=== PATIENT | male | born 1945 | race Caucasian/White ===

== ENCOUNTER 2023-06-01 18:37 | Inpatient (IN) | payer MEDICARE, OTHER, SELFPAY ==
[2023-06-01] VITALS (8 sets, daily range): BP systolic 125–179; BP diastolic 70–95; PULSE 106–121; BMI 26.7
[2023-06-01 14:35] LABS: % Basophils 0.2 % (0-2); % Eosinophils 0.5 % (0-6); % Immature Granulocytes 0.7 % (0-0.5); % Lymphocytes 8.6 % (20.5-51.1); % Monocytes 9.8 % (1.7-9.3); % Neutrophils 80.2 % (42.2-75.2); Absolute Eosinophils 0.1 10^3/uL (0-0.7); Absolute Immature Granulocytes 0.1 10^3/uL (0-0.05); Absolute Lymphocytes 1.1 10^3/uL (1.2-3.4); Absolute Monocytes 1.2 10^3/uL (0.1-0.6); Absolute Neutrophils 9.9 10^3/uL (1.4-6.5); Hematocrit 38.3 % (39.0-52.0); Hemoglobin 13.7 g/dL (13.0-18.0); Mean Corp Hgb Conc. 35.8 g/dL (33.0-37.0); Mean Corpuscular Hgb 31.9 pg (27.0-31.0); Mean Corpuscular Volume 89.1 fL (80.0-94.0); Mean Platelet Volume 9.3 fL (7.4-10.4); Nucleated Red Blood Cells % 0 % (-); Platelet Count 249 10^3/uL (130-400); Red Cell Dist. Width 12.7 % (11.5-14.5); White Blood Cell Count 12.3 10^3/uL (4.8-10.8)
[2023-06-01 14:57] LABS: ALT (SGPT) 38 U/L (0-50); AST (SGOT) 48 U/L (17-59); Albumin 3.9 g/dl (3.5-5.0); Alkaline Phosphatase 116 U/L (38-126); Blood Urea Nitrogen 45 mg/dl (9-20); Calcium 9.5 mg/dl (8.4-10.2); Carbon Dioxide 21 mmol/L (22-30); Chloride 95 mmol/L (98-107); Glucose 335 mg/dl (70-99); Potassium 3.9 mmol/L (3.5-5.1); Sodium 128 mmol/L (135-145); Total Protein 7.1 g/dl (6.3-8.2); eGFR 52.09
--- NOTE | 2023-06-01 16:02 | ED.GENMED ---
History of Present Illness
General
Chief Complaint: Dizziness
Time Seen by Provider: 06/01/23 16:02
Travel History
Have you had any contact with someone who has COVID-19?: No
Do you have any symptoms of coronavirus? Fever > 100 degrees, chills, cough, shortness of breath, sore throat, loss of taste or smell, muscle aches, or headache?: No
History of Present Illness
History of Present Illness:
HPI: Patient apparently presents due to dizziness that started a few days ago. He states that he went to his primary care doctor yesterday where they found what sounds like an elevated white count ('they found an infection somewhere but could not
tell me where'). He had some chest pain a few days ago related to moving a heavy piece of machinery which has since resolved.
EXAM:
GENERAL: Well appearing in no distress
HEENT: Moist oral mucosa
CARDIOVASCULAR: No murmurs, normal heart rate, regular rhythm, No chest wall tenderness
PULMONARY: No respiratory distress, breath sounds are clear and equal
ABDOMEN: Soft with no peritoneal signs, no tenderness
NEUROLOGIC: Excellent strength all extremities, normal finger-nose testing, borderline positive Romberg
PSYCHIATRIC: Appropriate mental status, normal insight and judgement
EXTREMITIES: Nontender, no edema, moves all extremities equally
SKIN: No rash, no lesions
TIME OF INITIAL ENCOUNTER: 4:10 PM
NUMBER AND COMPLEXITY OF PROBLEMS ADDRESSED AT THE ENCOUNTER
� Chronic conditions affecting care: High blood pressure, hyperlipidemia, diabetes
� Acute Exacerbation and/or Progression of Chronic Illness: This is an acute problem
� Differential Diagnosis includes: Central nervous system pathology, positional vertigo less likely, dehydration, NANNETTE
AMOUNT AND/OR COMPLEXITY OF DATA TO BE REVIEWED AND ANALYZED
� I performed an independent evaluation of and my interpretation is:
EKG: Sinus 79, normal axis
CT: CT brain no acute abnormality
X-rays:
Laboratory Studies: White count 12.3, hemoglobin 13.7, sodium slightly low 128, bicarb 21, BUN 45, creatinine 1.4, glucose 335,
Other:
� Review of other/old records: I look for old labs�no old sodium to compare, creatinine in the past was 0.8
� Clinical information was obtained by an independent historian: I spoke to the son at bedside
� Prescriptions/Medications Considered but not given:
� Further testing considered but not performed:
RISK OF COMPLICATIONS AND/OR MORBIDITY OR MORTALITY OF PATIENT MANAGEMENT
� Social determinants of health affecting care: Lives at home
� Discussion with other providers: Hospitalist for admission at 50 p.m.
� Escalation of care including admission/observation vs risk of discharge considered: Hyponatremia likely insignificant given the hyperglycemia (corrected sodium 132). The patient has at least a borderline positive Romberg test.
He did rather poorly trying to walk�this is acute. Recommend he stay in the hospital.
Past History
Past History
ED Past Medical History: HTN, Hypercholesterolemia and NIDDM
ED Past Surgical History: Orthopedic
Social History
Tobacco: Non-smoker
Alcohol: None
Living: with family
Employment: Employed
Family History
Family History: Other (Noncontributory)
Phy Exam
Physical Exam
Physical Exam:
See HPI
Course
Orders/Labs/Results
Orders:
Orders
06/01/23 14:13
Electrocardiogram (*1) Urgent
Reason for Study: Vertigo / Dizzy
EKG- Treatment ONCE
06/01/23 14:22
Complete Blood Count/With Diff Urgent
Comprehensive Metabolic Panel Urgent
06/01/23 16:05
0.9% Sodium Chloride 1000 ml [Nss] 1,000 ml IV BOLUS
06/01/23 16:15
CT Head W/o Iv Contrast Urgent
Comment:
Reason For Exam: severe dizzy borderline positive romberg
06/01/23 16:48
Lactic Acid Q4H
Comment: CANCEL 2nd LACTIC ACID IF 1st LACTIC ACID IS LESS THAN 2
Blood Culture Q30M
CARLOS Source: Blood/Venous
Specimen Description:
Blood Culture Q30M
CARLOS Source: Blood/Venous
Specimen Description:
06/01/23 17:48
Urinalysis Reflex To Culture Urgent
Abnormal Lab Results
06/01/23
14:22
WBC 12.3 H 10^3/uL
(4.8-10.8)
RBC 4.30 L 10^6/uL
(4.70-6.10)
Hct 38.3 L %
(39.0-52.0)
MCH 31.9 H pg
(27.0-31.0)
Abs Immat Gran (auto) 0.1 H 10^3/uL
(0-0.05)
Absolute Neuts (auto) 9.9 H 10^3/uL
(1.4-6.5)
Absolute Lymphs (auto) 1.1 L 10^3/uL
(1.2-3.4)
Absolute Monos (auto) 1.2 H 10^3/uL
(0.1-0.6)
Immature Gran % 0.7 H %
(0-0.5)
Neutrophils % 80.2 H %
(42.2-75.2)
Lymphocytes % 8.6 L %
(20.5-51.1)
Monocytes % 9.8 H %
(1.7-9.3)
Sodium 128 L mmol/L
(135-145)
Chloride 95 L mmol/L
(98-107)
Carbon Dioxide 21 L mmol/L
(22-30)
BUN 45 H mg/dl
(9-20)
Creatinine 1.4 H mg/dL
(0.7-1.3)
Glucose 335 H mg/dl
(70-99)
06/01/23 14:22
06/01/23 14:22
Vital Signs
Initial and Last Documented VS:
Initial Vital Signs
Temp Pulse Resp BP Pulse Ox
98.0 F 90 16 134/76 98
06/01/23 14:08 06/01/23 14:08 06/01/23 14:08 06/01/23 14:08 06/01/23 14:08
Last Documented Vital Signs
Temp Pulse Resp BP Pulse Ox
98.0 F 90 16 134/76 98
06/01/23 14:08 06/01/23 14:08 06/01/23 14:08 06/01/23 14:08 06/01/23 14:08
*Critical Care Note
Total Time (30-74mins, 75-104mins- exclusive of procedures): Not Applicable
ED Attending Note
-
Portions of this chart may have been created with voice recognition software.� Occasional wrong word or��sound alike� substitutions may have occurred due to the inherent limitations of voice recognition software.
Discharge Plan
Departure
Patient Disposition: Admit
Date of Disposition: 06/01/23
Time of Disposition: 17:49
Presentation/result/management discussed w/ accepting MD/DO: Hospitalist
Discharge Problem:
Gait instability
Prescriptions:
No Action
metformin 500 MG tablet
1,000 mg PO BID
niacin (inositol niacinate) [Niacin No Flush] 400 MG capsule
1 cap PO DAILY
aspirin 81 MG tablet,chewable
81 mg PO DAILY
salmon oil-omega-3 fatty acids 1 CAP capsule
1 cap PO DAILY
Chromium
400 mcg PO DAILY
GlipiZIDE
10 mg PO DAILY
Saw [place]
160 mg BID
hydrocodone-acetaminophen [Vicodin ES] 1 EACH tablet
1 ea PO Q6HPRN PRN (Reason: pain) Qty: 10 0RF
multivitamin [Daily Vitamin] 1 EACH tablet
1 ea PO DAILY
ascorbic acid (vitamin C) [Vitamin C] 500 MG tablet
1,500 mg PO DAILY
diazepam 5 MG tablet
5 mg PO PRN
ezetimibe 10 MG tablet
10 mg PO DAILY
lycopene 10 MG capsule
10 mg PO DAILY
fluticasone furoate [Veramyst] 10 GM spray,suspension
2 spray intranasal DAILY
cholecalciferol (vitamin D3) [Vitamin D3] 4,000 UNIT capsule
4,000 unit PO DAILY
canagliflozin [Invokana] 100 MG tablet
100 mg PO DAILY
Pantoprazole
20 mg DAILY
Losartan
100 mg PO DAILY
ibuprofen 600 MG tablet
600 mg PO Q6H Qty: 20 0RF
hydrocodone-acetaminophen [Vicodin] 1 EACH tablet
1 ea PO Q4 PRN (Reason: pain) Qty: 14 0RF
Referrals:
Talha Long DO [Family Provider] -
Interventions
Interventions:
*Risk Screen - Suicide Last Done: 06/01/23 16:56
*General Assessment Last Done: 06/01/23 16:56
*Neglect/Abuse Screening Last Done: 06/01/23 16:56
*ED COVID-19 Vaccine History Last Done: 06/01/23 14:08
ED- Neurological Assessment Last Done: 06/01/23 16:30
[2023-06-01] MEDS: NSS 1000 IV ×2 (16:34→21:02)
[2023-06-01 17:09] LABS: Lactic Acid 1.3 mmol/L (0.7-2.0)
--- NOTE | 2023-06-01 18:21 | HPS.HSE ---
Family Physician
-
Family Physician: Talha Long, DO
Chief Complaint
-
Unsteadiness of gait
History of Present Illness
77-year-old male here with complaints of unsteadiness when he walks. Symptoms started initially with chest pain on Tuesday after lifting heavy machinery, subsequently developed gait ataxia Tuesday and has persisted since.
Also complaining of loss of appetite and malaise. Denies any fevers but did have some chills recently. Denies nausea vomiting or cough. No changes in bowel habits.
Normally quite active but over the past 4 days has had difficulty ambulating due to unsteadiness.
Went to see his primary care doctor and diagnosed with possible infection of unknown etiology. Details unclear. Referred to the emergency room.
Medical History
Past Medical History
Past Medical History: Reports Other
Additional Past Medical History:
DM2
Essential hypertension
Hyperlipidemia
Chronic right foot drop
Past Surgical History: Reports Other
Additional Past Surgical History:
Umbilical hernia repair
Bilateral shoulder surgery
Social History
Tobacco: Non-smoker
Alcohol: Occasional
Drug: None
Personal:
Living: With Family
Family History
Family History: Not pertinent
Allergies / Home Medications
Allergies reflects when Allergies were last updated in [employer].
Home Medications with original date entered in [employer]
Allergy/Medication List:
Allergies
Allergy/AdvReac Type Severity Reaction Status Date / Time
codeine Allergy Unknown Facial Verified 06/01/23 14:11
Swelling
lisinopril Allergy Unknown Swelling Verified 06/01/23 14:11
Lzwjemn-UJC-JoK Reductase Allergy Unknown Unknown Verified 06/01/23 14:11
Inhibitor
[Zcdfjru-Qpu-Qbt Reductase
Inhibitor]
Home Medications
metformin 500 mg tablet 1,000 mg PO BID 10/03/09
Chromium 400 mcg PO DAILY 02/24/13
GlipiZIDE 10 mg PO DAILY 02/24/13
Saw [place] 160 mg BID 02/24/13
aspirin 81 mg chewable tablet 81 mg PO DAILY 02/24/13
hydrocodone 7.5 mg-acetaminophen 300 mg tablet (Vicodin ES) 1 ea PO Q6HPRN PRN pain #10 tabs 02/24/13
niacin 400 mg (inositol niacinate 500 mg) capsule (Niacin No Flush) 1 cap PO DAILY 02/24/13
salmon oil-omega-3 fatty acids 1,000 mg-200 mg capsule 1 cap PO DAILY 02/24/13
Pantoprazole 20 mg DAILY 12/10/13
ascorbic acid (vitamin C) 500 mg tablet (Vitamin C) 1,500 mg PO DAILY 12/10/13
canagliflozin 100 mg tablet (Invokana) 100 mg PO DAILY 12/10/13
cholecalciferol (vitamin D3) 100 mcg (4,000 unit) capsule (Vitamin D3) 4,000 unit PO DAILY 12/10/13
diazepam 5 mg tablet 5 mg PO PRN 12/10/13
ezetimibe 10 mg tablet 10 mg PO DAILY 12/10/13
fluticasone furoate 27.5 mcg/actuation nasal spray,suspension (Veramyst) 2 spray intranasal DAILY 12/10/13
lycopene 10 mg capsule 10 mg PO DAILY 12/10/13
multivitamin (Daily Vitamin tablet) 1 ea PO DAILY 12/10/13
Losartan 100 mg PO DAILY 12/19/13
hydrocodone 5 mg-acetaminophen 300 mg tablet (Vicodin) 1 ea PO Q4 PRN pain #14 tabs 12/19/13
ibuprofen 600 mg tablet 600 mg PO Q6H #20 tabs 12/19/13
dulaglutide 1.5 mg/0.5 mL subcutaneous pen injector (Trulicity) 1.5 mg SC SA 06/01/23
rosuvastatin 10 mg tablet (Crestor) 10 mg PO QPM 06/01/23
Review of Systems
-
History Source: Patient
A 12 point ROS was completed and negative except as noted: Yes
Musculoskeletal: Reports Other (Left-sided neck muscular pain)
Neurological: Reports Other (Gait ataxia); Denies Headache
Physical Exam
Vital Signs
Vital Signs
Temp Pulse Resp BP Pulse Ox
98.0 F 86 22 125/70 95
06/01/23 14:08 06/01/23 18:00 06/01/23 18:00 06/01/23 17:00 06/01/23 18:00
Physical Exam
General: Well Developed, Well Nourished, No Apparent Distress and Comfortable
HEENT: NormoCephalic, Anicteric and Moist mucous membranes
Respiratory: Clear
Cardiac: S1/S2 and Regular Rhythm
GI: Soft, Non Tender and Non Distended
Genito-urinary: Deferred by me
Musculoskeletal: No Clubbing, No Cyanosis, Edema, Left Lower Extremity (Trace) and Edema, Right Lower Extremity (Trace)
Skin: Warm and Dry
Neuro: AO x 3, Nonfocal/grossly intact and Other (Chronic right foot drop, no nystagmus, no dysmetria)
Hematologic/Lymphatic: No Lymphadenopathy
Psych: Calm
Laboratory Results
-
06/01/23 14:22
06/01/23 14:22
Laboratory Results
Lactic Acid Cancelled 06/01/23 20:30
Total Bilirubin 1.0 mg/dl (0.2-1.3) 06/01/23 14:22
AST 48 U/L (17-59) 06/01/23 14:22
ALT 38 U/L (0-50) 06/01/23 14:22
Alkaline Phosphatase 116 U/L (38-126) 06/01/23 14:22
Impression/Plan
-
Gait ataxia -concern for cerebellar stroke given his age and comorbidities and persistent symptoms. CT head without acute disease. Moderate diffuse cerebral and cerebellar volume loss. Minimal periventricular white matter leukoaraiosis. Admit to
telemetry, consult PT/OT, check brain MRI. Continue low-dose aspirin. Patient denies history of stroke or TIA. Ataxia started more than 72 hours ago.
NANNETTE -likely due to volume depletion. Continue normal saline IV fluids. Repeat labs in the morning. Hold ARB.
Hyponatremia - likely hypovolemic. Normal saline as above.
Mild leukocytosis -looks nontoxic. Afebrile. Monitor for now.
DM2 with hyperglycemia -glucose 335. Check hemoglobin A1c. Use low resistance sliding scale. Hold oral agents.
Essential hypertension -stable.
Chronic right foot drop
Obesity due to excess calories
Full code
Spouse updated at the bedside.
[2023-06-01 18:25] LABS: Urine Albumin Trace (Neg - Trace); Urine Bilirubin Negative (Negative); Urine Character Clear (Clear); Urine Color Yellow; Urine Glucose 1+ (Negative); Urine Ketone Negative (Negative); Urine Leukocyte Negative (Negative); Urine Nitrite Negative (Negative); Urine Occult Blood Trace (Negative); Urine Urobilinogen Negative (Neg - 1+)
[2023-06-01 18:32] LABS: Urine Granular Cast 0-2 /LPF (0); Urine Hyaline Cast 0-2 /LPF (0-2); Urine Red Blood Cell 0-2 /HPF (0-2); Urine Squamous Cell 0-2 /LPF (Few); Urine White Cell 0-2 /HPF (0-5)
--- NOTE | 2023-06-01 20:45 | PTCARENOTE ---
Pt arrived to room 417-02. Pt ambulated from stretcher to bed with x1 assistance, short shuffled gait. Pt AAOx3, VSS. Pt in no signs of acute distress, respirations regular. Oriented to room, call ceballos placed within reach.
[2023-06-01] MEDS: ASPIR LOW (ENTERIC COATED) 81 MG PO (21:02)
[2023-06-01 21:49] LABS: Glucose - Point of Care 311 mg/dl (70-99)
[2023-06-01] MEDS: PROTONIX 40 MG PO (22:12)
[2023-06-02] VITALS (8 sets, daily range): BP systolic 99–158; BP diastolic 55–79; PULSE 82; O2SAT 95
[2023-06-02 07:33] LABS: Glucose - Point of Care 275 mg/dl (70-99)
[2023-06-02] MEDS: ASPIR LOW (ENTERIC COATED) 81 MG PO (07:35)
[2023-06-02] MEDS: NOVOLOG FLEXPEN-LOW RESISTANCE 3 UNITS SC (08:28)
--- NOTE | 2023-06-02 08:39 | W.PN.HOSP.TC ---
Today's Communication/Plan
-
IV cefepime
ID consult
PT/OT
Brain MRI
Await labs
Assessment / Plan
Assessment / Plan
Gen-AAOx3, NAD
HEENT-NC, AT, anicteric, clear oral mm
Neck-supple
CV-reg, no M, +S1/S2
Lungs-clear B/L
Abd-soft, NT, ND
Ext-no edema
Musculoskeletal-no cyanosis, clubbing
Skin-warm and dry
Neuro-grossly non-focal
Psych-calm, cooperative
Gait ataxia -concern for cerebellar stroke given his age and comorbidities and persistent symptoms.� However, neurologic exam is unimpressive. No nystagmus. CT head without acute disease.� Await brain MRI. Consult PT/OT.
Gram-negative sepsis (POA) -cefepime started. Consult ID. Source of sepsis unclear. Urinalysis unremarkable. Blood cultures show gram-negative bacilli. No fevers in the hospital. Patient states that he had chills several days ago prior to
admission. Denies fevers or sweats. Denies unusual back pain or urinary symptoms. Denies GI symptoms.
NANNETTE -differential diagnosis includes volume depletion versus sepsis.� Continue normal saline IV fluids.�Hold ARB. Stop NSAIDs. Labs pending for today.
Hyponatremia - likely hypovolemic.� Normal saline as above.
Mild leukocytosis -looks nontoxic.� Afebrile.� Monitor for now.
DM2 with hyperglycemia -glucose 275 this a.m.� Check hemoglobin A1c.� Use low resistance sliding scale.� Hold oral agents. He uses Trulicity, glipizide, metformin at home.
Essential hypertension -stable.
Hyperlipidemia -continue rosuvastatin.
Chronic right foot drop
Obesity due to excess calories
Full code
Anticipated Discharge: > 48 hours
Subjective/Interval History
-
Date of Service: June 02, 2023
Patient seen and examined. No new complaints. About to eat breakfast.
Objective Data
-
Labs:
Laboratory Results
06/02/23
08:13
WBC Pending
Hgb Pending
Hct Pending
Plt Count Pending
Sodium Pending
Potassium Pending
Chloride Pending
Carbon Dioxide Pending
BUN Pending
Creatinine Pending
Glucose Pending
Calcium Pending
Total Bilirubin Pending
AST Pending
ALT Pending
Alkaline Phosphatase Pending
Vital Signs:
Vital Signs
Temp Pulse Resp BP Pulse Ox
99.3 F 84 18 121/66 94
06/02/23 03:44 06/02/23 03:44 06/02/23 03:44 06/02/23 03:44 06/02/23 03:44
I&O
06/01/23 06/02/23 06/03/23
06:59 06:59 06:59
Intake Total 960 / 960 860 / 860
Output Total 1200 / 1200
Balance -240 / -240 860 / 860
Review of Systems
-
History Source: Patient
All other systems: Reviewed and negative
[2023-06-02] MEDS: MAXIPIME 2000 MG IV ×2 (08:44→20:03)
[2023-06-02] MEDS: STERILE WATER FOR INJECTION 10 ML IV ×2 (08:45→20:03)
[2023-06-02 08:57] LABS: % Basophils 0.3 % (0-2); % Eosinophils 0.2 % (0-6); % Immature Granulocytes 1.3 % (0-0.5); % Lymphocytes 7.6 % (20.5-51.1); % Monocytes 8.6 % (1.7-9.3); Absolute Immature Granulocytes 0.1 10^3/uL (0-0.05); Absolute Lymphocytes 0.8 10^3/uL (1.2-3.4); Absolute Monocytes 0.9 10^3/uL (0.1-0.6); Absolute Neutrophils 8.9 10^3/uL (1.4-6.5); Hemoglobin 12.9 g/dL (13.0-18.0); Mean Corp Hgb Conc. 34.9 g/dL (33.0-37.0); Mean Corpuscular Hgb 31.3 pg (27.0-31.0); Mean Corpuscular Volume 89.8 fL (80.0-94.0); Mean Platelet Volume 9.3 fL (7.4-10.4); Nucleated Red Blood Cells % 0 % (-); Platelet Count 262 10^3/uL (130-400); Red Blood Cell Count 4.12 10^6/uL (4.70-6.10); Red Cell Dist. Width 12.4 % (11.5-14.5); White Blood Cell Count 10.9 10^3/uL (4.8-10.8)
[2023-06-02 09:47] LABS: ALT (SGPT) 113 U/L (0-50); AST (SGOT) 280 U/L (17-59); Albumin 3.5 g/dl (3.5-5.0); Alkaline Phosphatase 209 U/L (38-126); Blood Urea Nitrogen 25 mg/dl (9-20); Calcium 9.2 mg/dl (8.4-10.2); Carbon Dioxide 22 mmol/L (22-30); Chloride 100 mmol/L (98-107); Estimated Creatinine Clearance 65 ml/min; Glucose 274 mg/dl (70-99); Potassium 3.9 mmol/L (3.5-5.1); Sodium 131 mmol/L (135-145); Total Bilirubin 2.5 mg/dl (0.2-1.3); Total Protein 6.7 g/dl (6.3-8.2); eGFR > 60.00
--- NOTE | 2023-06-02 10:17 | CM ---
Patient seen at bedside. Patient states that he lives with his in a 2 story home. Patient has a walker at home that he does not use. Patient PCP is Dr. White and he uses the [facility]. Patient states that he does not anticipate any
needs at discharge but is eager to understand what is causing his issues. CM will continue to follow for discharge planning needs.
Plan; home with no need vs VN
[2023-06-02] MEDS: NSS 1000 IV (10:44)
[2023-06-02 11:30] LABS: Glycohemoglobin (HgbA1c) 8.9 % (4.0-5.6)
[2023-06-02 12:13] LABS: Glucose - Point of Care 319 mg/dl (70-99)
[2023-06-02] MEDS: NOVOLOG FLEXPEN-LOW RESISTANCE 4 UNITS SC ×2 (12:14→17:09)
[2023-06-02 16:57] LABS: Glucose - Point of Care 325 mg/dl (70-99)
[2023-06-02] MEDS: PROTONIX 40 MG PO (17:10)
[2023-06-02] MEDS: LOVENOX 40 MG SC (17:10)
--- NOTE | 2023-06-02 17:35 | CON.ID ---
Consultation
-
Date/Time Consultation Requested: 06/02/2023 08:30
Date/Time Consultation Performed: 06/02/2023 1715
Requesting Provider: Dr. Frey
Performing Provider: Dr. Elizabeth
Reason for Consultation: Bacteremia
Chief Complaint / Past History
History of Present Illness
Sang Maldonado is a 77-year-old man being evaluated at the request of Dr. Frey in regards to bacteremia. History is obtained from chart review, along with patient interview and additional history obtained from the patient's who was at
the bedside.
The patient has a significant past medical history of diabetes mellitus and was in his usual state of health until approximately 4 to 5 days ago when he began to have some dizziness. He denies any loss of consciousness or falls, but his
notes that he saw him in the kitchen staggering around and thought he might be drunk. During this period of time he denies any fevers, but does report some intermittent chills. He denies any nausea or vomiting history, but notes a decreased
appetite for several days. He denies any abdominal pain. He denies any dysuria or change in his urinary stream.
Ultimately, the patient was seen by his PCP, and it sounds like he was found to have an elevated white count and he was sent to the emergency room for further evaluation. Once here, blood cultures were obtained, which are now positive for E. coli.
Infectious Diseases is asked to comment upon further antimicrobial therapy. The patient has been started on empiric cefepime.
Past History
Additional Past Medical History:
HTN
Dyslipidemia
Diabetes mellitus
Additional Past Surgical History:
Shoulder surgery
Allergy History:
codeine Allergy (Verified 06/01/23 21:14)
Facial Swelling
lisinopril Allergy (Verified 06/01/23 21:14)
Swelling
Wteioql-INW-OwV Reductase Inhibitor [Mngwgwg-Fml-Txt Reductase Inhibitor] Allergy (Verified 06/01/23 21:14)
Unknown
Medications Reviewed: Yes
Current Antibiotics:
Cefepime 2 g IV every 12 hours
Social History
Tobacco: Non-Smoker
Alcohol: None
Drug: None
Personal:
Living: With Family
Employment: Retired
Family History
Family History: Not Pertinent
Review of Systems
Vital Signs
Temp Pulse Resp BP Pulse Ox
100.2 F 85 18 158/78 96
06/02/23 15:45 06/02/23 15:45 06/02/23 15:45 06/02/23 15:45 06/02/23 15:45
Physical Exam
Physical Exam
Constitutional: No Acute Distress, Comfortable and Non-toxic
Head: Normocephalic
Eyes: Pupils Equal, Pupils Round, No Conjunctival Hemorrhage and Sclera Anicteric
Oral: No Thrush and No Ulcers
Cardiovascular: S1/S2; Negative S3/S4
Pulmonary: Clear and Non Labored; Negative Wheezes, Rales or Rhonchi
Gastrointestinal: Soft, Non Tender, Non Distended, Normal Bowel Sounds, No Rebound and No Guarding
Genito-Urinary: Negative [place]
Extremities: Negative Edema, Cyanosis or Erythema
Neurological: Awake and Alert
Psychological: Calm
Lab / Diagnostic Study Results
06/02/23 08:13
06/02/23 08:13
Abs Immat Gran (auto) 0.1 10^3/uL (0-0.05) H 06/02/23 08:13
Absolute Neuts (auto) 8.9 10^3/uL (1.4-6.5) H 06/02/23 08:13
Absolute Lymphs (auto) 0.8 10^3/uL (1.2-3.4) L 06/02/23 08:13
Absolute Monos (auto) 0.9 10^3/uL (0.1-0.6) H 06/02/23 08:13
Absolute Basos (auto) 0.0 10^3/uL (0-0.2) 06/02/23 08:13
Immature Gran % 1.3 % (0-0.5) H 06/02/23 08:13
Neutrophils % 82.0 % (42.2-75.2) H 06/02/23 08:13
Lymphocytes % 7.6 % (20.5-51.1) L 06/02/23 08:13
Monocytes % 8.6 % (1.7-9.3) 06/02/23 08:13
Eosinophils % 0.2 % (0-6) 06/02/23 08:13
Basophils % 0.3 % (0-2) 06/02/23 08:13
Lactic Acid Cancelled 06/01/23 20:30
Ur Squamous Epith Cells 0-2 /LPF (Few) 06/01/23 18:06
Microbiology Results
Micro:
06/01/23 16:48 Blood Culture - Preliminary
Blood/Venous Escherichia coli
Gram Stain - Preliminary
06/01/23 16:48 Blood Culture - Preliminary
Blood/Venous Positive culture in progress
Gram Stain - Preliminary
Imaging:
06/01/2023 CT head without contrast: No CT evidence for acute intracranial hemorrhage or extra-axial collection. Moderate diffuse cerebral and cerebellar volume loss is noted.
Assessment / Plan
E. coli bacteremia; source unclear
Leukocytosis
Transaminitis
Elevated bilirubin
HTN
Dyslipidemia
Diabetes mellitus (uncontrolled; PdR0b=9.9)
Recommendations:
Continue with cefepime for the present.
Repeat blood cultures to assess clearance.
Await sensitivity data to guide further antimicrobial selection and de-escalation.
Suspected intra-abdominal source of E. coli. Will order abdominal ultrasound, but ultimately may need CT with contrast.
Trend LFTs and bilirubin.
Follow white count and temperature curve.
[2023-06-02] MEDS: TYLENOL 650 MG PO (20:03)
[2023-06-02 21:31] LABS: Glucose - Point of Care 289 mg/dl (70-99)
[2023-06-03 03:00] VITALS: BP 110/62
[2023-06-03 07:30] VITALS: BP 149/82
[2023-06-03 07:36] LABS: Glucose - Point of Care 239 mg/dl (70-99)
[2023-06-03] MEDS: ASPIR LOW (ENTERIC COATED) 81 MG PO (07:48)
[2023-06-03] MEDS: NOVOLOG FLEXPEN-LOW RESISTANCE 2 UNITS SC (07:48)
[2023-06-03] MEDS: STERILE WATER FOR INJECTION 10 ML IV ×2 (07:49→20:44)
[2023-06-03] MEDS: MAXIPIME 2000 MG IV ×2 (07:49→20:43)
[2023-06-03 09:40] LABS: % Basophils 0.4 % (0-2); % Immature Granulocytes 1.4 % (0-0.5); % Lymphocytes 10.5 % (20.5-51.1); % Neutrophils 76.7 % (42.2-75.2); Absolute Eosinophils 0.1 10^3/uL (0-0.7); Absolute Immature Granulocytes 0.1 10^3/uL (0-0.05); Absolute Lymphocytes 0.9 10^3/uL (1.2-3.4); Absolute Monocytes 0.8 10^3/uL (0.1-0.6); Absolute Neutrophils 6.4 10^3/uL (1.4-6.5); Hematocrit 36.9 % (39.0-52.0); Hemoglobin 13.3 g/dL (13.0-18.0); Mean Corpuscular Hgb 32.8 pg (27.0-31.0); Mean Corpuscular Volume 90.9 fL (80.0-94.0); Mean Platelet Volume 9.7 fL (7.4-10.4); Nucleated Red Blood Cells % 0 % (-); Platelet Count 293 10^3/uL (130-400); Red Blood Cell Count 4.06 10^6/uL (4.70-6.10); Red Cell Dist. Width 12.6 % (11.5-14.5); White Blood Cell Count 8.3 10^3/uL (4.8-10.8)
[2023-06-03 10:17] LABS: ALT (SGPT) 298 U/L (0-50); AST (SGOT) 317 U/L (17-59); Albumin 3.4 g/dl (3.5-5.0); Alkaline Phosphatase 298 U/L (38-126); Blood Urea Nitrogen 19 mg/dl (9-20); Calcium 9.6 mg/dl (8.4-10.2); Carbon Dioxide 24 mmol/L (22-30); Chloride 99 mmol/L (98-107); Estimated Creatinine Clearance 81 ml/min; Glucose 281 mg/dl (70-99); Sodium 136 mmol/L (135-145); Total Bilirubin 3.3 mg/dl (0.2-1.3); Total Protein 6.6 g/dl (6.3-8.2); eGFR > 60.00
[2023-06-03 11:09] VITALS: BP 133/73
--- NOTE | 2023-06-03 11:50 | CON.GS ---
Addendum entered and electronically signed by Matt Levi MD 06/03/23 12:23:
Patient seen and examined. Agree with assessment plan as documented below.
Patient is a 77 yo M with a PMH of GERD, HTN, HLD, NIDDM, and s/p open umbilical hernia repair with mesh who presented to the hospital with dizziness and gait instability for approximately 1 week. He was initially admitted under the presumption of
a neurologic issue, and underwent a CT and MRI of the brain which were negative. He was found to have positive blood cultures for E. coli. He was febrile to 101.3 yesterday. Labs were notable for a elevation in bilirubin and LFTs prompting an
ultrasound which demonstrated cholelithiasis and signs of cholecystitis. He is currently on Cefepime. He denies any abdominal pain or discomfort. No nausea or vomiting. He does report some chills while at home at night, but denies any fevers.
Denies any jaundice or pale stools. He does note darker urine. Of note, patient recently ate breakfast at approximately 10 to 11 AM.
Gen: NAD
Abd: soft, NT/ND, non-peritoneal, prior umbilical incision well healed
Labs and imaging were reviewed.
Patient is a 77 yo M p/w acute cholecystitis versus choledocholithiasis.
Natural history and pathophysiology of biliary and stone disease was discussed. Anatomy was reviewed utilizing pictorial images. Role of cholecystectomy was discussed. Given his recent PO intake (and clinical stability), unable to perform
cholecystectomy today. Plan for further workup of choledocholithiasis given his elevated LFTs, bilirubin, and soft signs of cholangitis. Continue with antibiotic coverage. NPO. All questions answered.
-- MRCP
-- NPO, IVF
-- Abx: Cefepime, ID on board
-- Trend labs
Original Note:
Consultation
-
Date/Time Consultation Requested: 06/03/23921
Requesting Provider: Tk
Medical History
-
Chief Complaint: dizziness
History of Present Illness:
77 yo male with a h/o DM, HTN and UHR remotely who presented with dizziness and difficulty walking about one week ago. Initial neurologic work up has been negative. Blood cultures on admission with growth of ecoli with initial elevation in WBC's.
LFT's initially normal but have been steadily rising since presentation. He denies nausea, vomiting or abdominal pain. He notes that his urine has been dark but denies acholic stools. He denies constipation or diarrhea. He has been tolerating diet
without difficulty. He was febrile yesterday to 101.3, but has been afebrile since that time. Vitals have been stable. On exam, his abd is soft, non-tender and non-distended. He has mild jaundice.
Past Medical History
Past Medical History: HTN, Hypercholesterolemia and NIDDM
Past Surgical History: Hernia Repair (UHR with mesh remotely) and Orthopedic (shoulder surgery)
Social History
Tobacco: Non-Smoker
Alcohol: Occasional
Family History
Family History: Reviewed & Not Pertinent
Allergies / Home Medications
Allergy/AdvReac Type Severity Reaction Status Date / Time
codeine Allergy Facial Verified 06/01/23 21:14
Swelling
lisinopril Allergy Swelling Verified 06/01/23 21:14
Crwhyhg-LCS-WtQ Reductase Allergy Unknown Verified 06/01/23 21:14
Inhibitor
[Sutqxhr-Hsi-Haj Reductase
Inhibitor]
Medication Instructions Recorded Confirmed Type
metformin 500 mg tablet 1,000 mg PO BID 10/03/09 06/01/23 History
aspirin 81 mg chewable tablet 81 mg PO DAILY 02/24/13 06/01/23 History
glipizide 10 mg tablet, extended 10 mg PO DAILY 02/24/13 06/01/23 History
release 24 hr
ascorbic acid (vitamin C) 500 mg 1,500 mg PO DAILY 12/10/13 06/01/23 History
tablet (Vitamin C)
docusate sodium 100 mg capsule 100 mg PO DAILYPRN PRN cosntipation 06/01/23 06/01/23 History
(Colace)
dulaglutide 1.5 mg/0.5 mL 1.5 mg SC SA 06/01/23 06/01/23 History
subcutaneous pen injector
(Trulicity)
hydrocodone 5 mg-acetaminophen 300 1 tab PO BIDPRN PRN moderate pain 06/01/23 06/01/23 History
mg tablet
losartan 100 mg tablet 100 mg PO QPM 06/01/23 06/01/23 History
metoprolol succinate 25 mg 25 mg PO QPM 06/01/23 06/01/23 History
tablet,extended release 24 hr
(Toprol XL)
naproxen sodium 220 mg tablet 440 mg PO BIDPRN PRN mild pain 06/01/23 06/01/23 History
(Aleve)
omeprazole 20 mg tablet,delayed 20 mg PO QPM 06/01/23 06/01/23 History
release
rosuvastatin 10 mg tablet (Crestor) 10 mg PO QPM 06/01/23 06/01/23 History
therapeutic multivitamin 1 tab PO DAILY 06/01/23 06/01/23 History
Review of Systems
-
History Source: Patient
All other systems: Negative unless noted
A 10 point review of systems was completed, and was negative except as per HPI.
Physical Exam
Vital Signs
Temp Pulse Resp BP Pulse Ox
98.5 F 90 18 133/73 94
06/03/23 11:09 06/03/23 11:09 06/03/23 11:09 06/03/23 11:09 06/03/23 11:09
06/02/23 06/03/23 06/04/23
06:59 06:59 06:59
Actual Weight 84.538 kg
Body Mass Index (BMI) 26.7
Lab Results
06/03/23 08:27
06/03/23 08:27
WBC 8.3 10^3/uL (4.8-10.8) 06/03/23 08:
Hgb 13.3 g/dL (13.0-18.0) 06/03/23 08:
Hct 36.9 % (39.0-52.0) L 06/03/23 08:27
Plt Count 293 10^3/uL (130-400) 06/03/23 08:
Abs Immat Gran (auto) 0.1 10^3/uL (0-0.05) H 06/03/23 08:
Neutrophils % 76.7 % (42.2-75.2) H 06/03/23 08:
Physical Exam
General: Well Developed and No Apparent Distress
HEENT: Moist Mucous Membranes
Respiratory: Non Labored Respirations
GI: Soft, Non Tender and Non Distended
Skin: Jaundice
Neuro: Awake, Alert and AO x 3
Psych: Calm
Data Reviewed
-
Ultrasound: Image Personally Visualized and interpreted, Report Reviewed by me, Discussed with Physician and Discussed with Patient
Labs: Labs Reviewed by me, Discussed with Physician and Discussed with Patient
Old Records: Reviewed
Assessment / Plan
-
77 yo male with a h/o DM, HTN and UHR remotely who presented with dizziness and difficulty walking about one week ago. Initial neurologic work up has been negative. Blood cultures on admission with growth of ecoli with initial elevation in WBC's
(now WBC's normal). LFT's initially normal but have been steadily rising since presentation. Fever yesterday up to 101.3. No c/o GI symptoms. US today with layering sludge and wall thickening concerning for acute cholecystitis. Patient ate full
breakfast just prior to exam.
--Plan MRCP to evaluate for choledocholithiasis, if noted will consult GI to follow with us
--Recommend lap luz marina this admission, timing TBD pending MRCP findings/OR availability. Will make NPO after MN for tentative OR
--Continue ABX as per ID
[2023-06-03 12:04] LABS: Glucose - Point of Care 377 mg/dl (70-99)
[2023-06-03] MEDS: NOVOLOG FLEXPEN-LOW RESISTANCE 5 UNITS SC (12:32)
[2023-06-03] MEDS: NOVOLIN N vial 0.100000000000000006 UNITS SC (12:33)
--- NOTE | 2023-06-03 13:04 | W.PN.HOSP.TC ---
Today's Communication/Plan
-
MRCP
Add insulin
Diabetes education
N.p.o. after midnight
Assessment / Plan
Assessment / Plan
Gen-AAOx3, NAD
HEENT-NC, AT, anicteric, clear oral mm
Neck-supple
CV-reg, no M, +S1/S2
Lungs-clear B/L
Abd-soft, NT, ND
Ext-no edema
Musculoskeletal-no cyanosis, clubbing
Skin-warm and dry
Neuro-grossly non-focal
Psych-calm, cooperative
E. coli sepsis due to acute calculus cholecystitis -suspect present on admission. Hemodynamically stable. White blood cell count normalized. Afebrile. Fever noted last night. Elevated LFTs noted.
Blood cultures positive. Continue antibiotics per ID. Appreciate surgery input, anticipate cholecystectomy tomorrow. N.p.o. after midnight. Await MRCP today.
Gait ataxia -likely due to sepsis, acute illness. No stroke noted on brain MRI. Ataxia improving overall. Continue PT.
NANNETTE -differential diagnosis includes volume depletion versus sepsis.� Continue normal saline IV fluids.�Hold ARB. Stop NSAIDs. NANNETTE resolved.
Hyponatremia - likely hypovolemic.� Sodium normalized.
DM2 with hyperglycemia -glucose 281 this a.m.,�hemoglobin A1c 8.9%.�He uses Trulicity, glipizide, metformin at home, all are on hold for now. Add Lantus 10 units at bedtime, give a dose of NPH now. Anticipate may need to go home on insulin.
Discussed with patient. Consult diabetes education.
Essential hypertension -stable.
Hyperlipidemia -continue rosuvastatin.
Chronic right foot drop
Obesity due to excess calories
Full code
Anticipated Discharge: > 48 hours
Subjective/Interval History
-
Date of Service: June 03, 2023
Patient seen and examined. No complaints. Overall feeling better.
Objective Data
-
Labs:
Laboratory Results
06/03/23
08:27
WBC 8.3
Hgb 13.3
Hct 36.9 L
Plt Count 293
Sodium 136
Potassium 4.0
Chloride 99
Carbon Dioxide 24
BUN 19
Creatinine 0.8
Glucose 281 H
Calcium 9.6
Total Bilirubin 3.3 H
AST 317 H
ALT 298 H
Alkaline Phosphatase 298 H
Vital Signs:
Vital Signs
Temp Pulse Resp BP Pulse Ox
98.5 F 90 18 133/73 94
06/03/23 11:09 06/03/23 11:09 06/03/23 11:09 06/03/23 11:09 06/03/23 11:09
I&O
06/02/23 06/03/23 06/04/23
06:59 06:59 06:59
Intake Total 960 / 960 1520 / 1520
Output Total 1200 / 1200 2600 / 2600
Balance -240 / -240 -1080 / -1080
Review of Systems
-
History Source: Patient
All other systems: Reviewed and negative
--- NOTE | 2023-06-03 14:33 | W.PN.ID1 ---
Date of Service
Date of Service: June 03, 2023
Today's Communication
Continue antibiotics.
Assessment / Plan
E. coli bacteremia
Suspected cholecystitis
Leukocytosis
Transaminitis
Elevated bilirubin
HTN
Dyslipidemia
Diabetes mellitus (uncontrolled; LrG2y=0.9)
Recommendations:
Continue with cefepime for the present.
Repeat blood cultures to assess clearance.
Await sensitivity data to guide further antimicrobial selection and de-escalation.
Follow white count and temperature curve.
Chief Complaint
-: Bacteremia
Subjective / Review of Systems
Review of Systems: No Fever and No Chills
Vital Signs / Physical Exam
Vital Signs
Vital Signs
Temp Pulse Resp BP Pulse Ox
98.5 F 90 18 133/73 94
06/03/23 11:09 06/03/23 11:09 06/03/23 11:09 06/03/23 11:09 06/03/23 11:09
Physical Exam
Constitutional: No Acute Distress, Comfortable and Non-toxic
Eyes: No Conjunctival Hemorrhage and Sclera Anicteric
Cardiovascular: S1/S2; Negative S3/S4
Pulmonary: Non Labored; Negative Wheezes
Gastrointestinal: Soft, Non Tender and Non Distended
Neurological: Awake and Alert
Psychological: Calm
Objective Data
Lab Data
Lab Results
06/03/23 08:27
06/03/23 08:27
Estimated Creat Clear 81 ml/min 06/03/23 08:27
Lactic Acid Cancelled 06/01/23 20:30
Total Bilirubin 3.3 mg/dl (0.2-1.3) H 06/03/23 08:27
AST 317 U/L (17-59) H 06/03/23 08:27
ALT 298 U/L (0-50) H 06/03/23 08:27
Alkaline Phosphatase 298 U/L (38-126) H 06/03/23 08:27
Most recent labs reviewed.
Micro Results:
06/01/23 16:48 Blood Culture - Preliminary
Blood/Venous Escherichia coli
Gram Stain - Preliminary
06/01/23 16:48 Blood Culture - Preliminary
Blood/Venous Escherichia coli
Gram Stain - Preliminary
06/02/23 18:24 Blood Culture - Pending
Blood/Venous
06/02/23 18:22 Blood Culture - Pending
Blood/Venous
Imaging:
06/03/2023 Ultrasound abdomen: Layering echogenic sludge and possible noncalcified layering gallstones are noted. Gallbladder wall thickening and Tunde cholecystic fluid consistent with acute cholecystitis although patient has a negative sonographic
Giraldo sign.
06/01/2023 CT head without contrast: No CT evidence for acute intracranial hemorrhage or extra-axial collection. Moderate diffuse cerebral and cerebellar volume loss is noted.
--- NOTE | 2023-06-03 14:58 | CM ---
Patient seen with spouse. Per nurse, patient will be NPO after midnight and have surgery tomorrow. CM will continue to follow for discharge planning needs.
Plan; home no needs vs VN
[2023-06-03 15:00] VITALS: BP 153/89
--- NOTE | 2023-06-03 16:20 | PN.DE ---
Diabetes Education
- -
06/03/2023: Diabetes Education
Met with Mr. Garcia at bedside. Pt sitting up in chair. States he has a working glucometer at home but does not monitor his sugars regularly.
Discussed action of both rapid acting and long acting insulins as well as symptoms and treatment of hypoglycemia. Aware for meals to check blood glucose, inject Lantus (Long acting insulin) in outer thigh, rotating sites. Aware to store insulin pens
that are not in use in the refrigerator. Instructions with good return demonstration using the insulin pen were noted. Discussed importance of checking blood sugars 4x/day to assess food/medication effect on his BS, reducing CHO intake, and being
active. Provided information and handout on outpt education classes.
Will need RX for Lantus as well as pen needles at discharge.
Extra BD Hortencia needles left at bedside for later use to reinforce insulin administration.
Updates given to nursing team taking care of pt
[2023-06-03 16:58] LABS: Glucose - Point of Care 337 mg/dl (70-99)
[2023-06-03] MEDS: NOVOLOG FLEXPEN-LOW RESISTANCE 4 UNITS SC (17:00)
[2023-06-03] MEDS: LOVENOX 40 MG SC (17:00)
[2023-06-03] MEDS: PROTONIX 40 MG PO (17:01)
[2023-06-03 19:00] VITALS: BP 133/72
[2023-06-03 21:29] LABS: Glucose - Point of Care 274 mg/dl (70-99)
[2023-06-03 21:35] LABS: Glucose - Point of Care 296 mg/dl (70-99)
[2023-06-03] MEDS: LANTUS 0.100000000000000006 UNITS SC (22:06)
[2023-06-03 23:00] VITALS: BP 144/75
[2023-06-04 03:00] VITALS: BP 133/70
[2023-06-04 07:00] VITALS: BP 138/81
[2023-06-04 08:13] LABS: ALT (SGPT) 444 U/L (0-50); AST (SGOT) 484 U/L (17-59); Albumin 3.6 g/dl (3.5-5.0); Alkaline Phosphatase 387 U/L (38-126); Blood Urea Nitrogen 22 mg/dl (9-20); Calcium 9.6 mg/dl (8.4-10.2); Carbon Dioxide 25 mmol/L (22-30); Chloride 99 mmol/L (98-107); Estimated Creatinine Clearance 81 ml/min; Glucose 254 mg/dl (70-99); Potassium 4.5 mmol/L (3.5-5.1); Sodium 134 mmol/L (135-145); Total Bilirubin 1.9 mg/dl (0.2-1.3); Total Protein 6.9 g/dl (6.3-8.2); eGFR > 60.00
[2023-06-04 08:52] LABS: Glucose - Point of Care 234 mg/dl (70-99)
[2023-06-04] MEDS: NOVOLOG FLEXPEN-LOW RESISTANCE SC (08:59)
[2023-06-04] MEDS: MAXIPIME 2000 MG IV (09:02)
[2023-06-04] MEDS: ASPIR LOW (ENTERIC COATED) 81 MG PO (09:02)
[2023-06-04] MEDS: STERILE WATER FOR INJECTION 10 ML IV (09:03)
[2023-06-04 10:57] VITALS: BP 127/74
--- NOTE | 2023-06-04 11:05 | W.PN.HOSP.TC ---
Today's Communication/Plan
-
Adjust insulin
Await surgery input
Assessment / Plan
Assessment / Plan
Gen-AAOx3, NAD
HEENT-NC, AT, anicteric, clear oral mm
Neck-supple
CV-reg, no M, +S1/S2
Lungs-clear B/L
Abd-soft, NT, ND
Ext-no edema
Musculoskeletal-no cyanosis, clubbing
Skin-warm and dry
Neuro-grossly non-focal
Psych-calm, cooperative
E. coli sepsis due to acute calculus cholecystitis -suspect present on admission. Hemodynamically stable. White blood cell count normalized. No further fevers. Elevated LFTs noted.
Repeat blood cultures negative. Continue antibiotics per ID. Appreciate surgery input, anticipate cholecystectomy tomorrow. Awaiting general surgery decision on timing of cholecystectomy. MRCP ordered but not completed yet.
Gait ataxia -likely due to sepsis, acute illness. No stroke noted on brain MRI. Ataxia improving overall. Continue PT.
NANNETTE -differential diagnosis includes volume depletion versus sepsis.� Continue normal saline IV fluids.�Hold ARB. Stop NSAIDs. NANNETTE resolved.
Hyponatremia - likely hypovolemic.� Sodium improving.
DM2 with hyperglycemia -glucose 254 this a.m.,�hemoglobin A1c 8.9%.�He uses Trulicity, glipizide, metformin at home, all are on hold for now. Not on insulin at home. Will increase Lantus to 12 units at bedtime. Continue low resistance sliding
scale.
Essential hypertension -stable.
Hyperlipidemia -hold rosuvastatin for elevated LFTs.
Chronic right foot drop
Obesity due to excess calories
Full code
Anticipated Discharge: > 48 hours
Subjective/Interval History
-
Date of Service: June 04, 2023
Patient seen and examined. No complaints. Frustrated that his surgery was canceled.
Objective Data
-
Labs:
Laboratory Results
06/04/23
07:06
Sodium 134 L
Potassium 4.5
Chloride 99
Carbon Dioxide 25
BUN 22 H
Creatinine 0.8
Glucose 254 H
Calcium 9.6
Total Bilirubin 1.9 H D
AST 484 H
ALT 444 H
Alkaline Phosphatase 387 H
Vital Signs:
Vital Signs
Temp Pulse Resp BP Pulse Ox
98.0 F 78 14 127/74 96
06/04/23 10:57 06/04/23 10:57 06/04/23 10:57 06/04/23 10:57 06/04/23 10:57
I&O
06/03/23 06/04/23 06/05/23
06:59 06:59 06:59
Intake Total 1520 / 1520 920 / 920
Output Total 2600 / 2600
Balance -1080 / -1080 920 / 920
Review of Systems
-
History Source: Patient
All other systems: Reviewed and negative
[2023-06-04 11:46] LABS: Glucose - Point of Care 281 mg/dl (70-99)
[2023-06-04] MEDS: NOVOLOG FLEXPEN-LOW RESISTANCE 3 UNITS SC ×2 (12:03→17:34)
--- NOTE | 2023-06-04 12:44 | W.PN.ID1 ---
Date of Service
Date of Service: June 04, 2023
Today's Communication
start cefazolin
agree with cholecystectomy
Assessment / Plan
E. coli bacteremia
Suspected cholecystitis
Leukocytosis
Transaminitis
Elevated bilirubin
HTN
Dyslipidemia
Diabetes mellitus (uncontrolled; HeC7c=1.9)
Recommendations:
start cefazolin stop cefepime
Repeat blood cultures in progress
Agree with cholecystectomy
Follow white count and temperature curve.
Chief Complaint
-: Bacteremia
Subjective / Review of Systems
afebrile
bp stable
leukocytosis has resolved, L shift nearly resolved
cr 0.8
progression in alk phos and ast/alt
Vital Signs / Physical Exam
Vital Signs
Vital Signs
Temp Pulse Resp BP Pulse Ox
98.0 F 78 14 127/74 96
06/04/23 10:57 06/04/23 10:57 06/04/23 10:57 06/04/23 10:57 06/04/23 10:57
Physical Exam
Constitutional: No Acute Distress
Cardiovascular: Regular Rate and S1/S2; Negative Murmur or Rub
Pulmonary: Clear and Symmetric; Negative Wheezes or Rales
Gastrointestinal: Soft, Non Tender, Non Distended and Normal Bowel Sounds
Skin: Warm and Dry; Negative Rash or Jaundice
Objective Data
Lab Data
Lab Results
06/03/23 08:27
06/04/23 07:06
Estimated Creat Clear 81 ml/min 06/04/23 07:06
Lactic Acid Cancelled 06/01/23 20:30
Total Bilirubin 1.9 mg/dl (0.2-1.3) H D 06/04/23 07:06
AST 484 U/L (17-59) H 06/04/23 07:06
ALT 444 U/L (0-50) H 06/04/23 07:06
Alkaline Phosphatase 387 U/L (38-126) H 06/04/23 07:06
Most recent labs reviewed.
Micro Results:
06/01/23 16:48 Blood Culture - Preliminary
Blood/Venous Escherichia coli
Gram Stain - Preliminary
06/01/23 16:48 Blood Culture - Preliminary
Blood/Venous Escherichia coli
Gram Stain - Preliminary
06/02/23 18:22 Blood Culture - Preliminary
Blood/Venous No Growth in 24 hours- Final report to follow
06/02/23 18:24 Blood Culture - Preliminary
Blood/Venous No Growth in 24 hours- Final report to follow
Imaging:
06/03/2023 Ultrasound abdomen: Layering echogenic sludge and possible noncalcified layering gallstones are noted. Gallbladder wall thickening and Tunde cholecystic fluid consistent with acute cholecystitis although patient has a negative sonographic
Giraldo sign.
06/01/2023 CT head without contrast: No CT evidence for acute intracranial hemorrhage or extra-axial collection. Moderate diffuse cerebral and cerebellar volume loss is noted.
--- NOTE | 2023-06-04 13:08 | W.PN.GS2 ---
Today's Communication / Plan
-
--Awaiting MRCP to evaluate for choledocholithiasis, if noted will consult GI to follow with us.
--Apparently the MRCP is tomorrow. Ok for a diet, NPO for procedure tomorrow.
--Recommend lap luz marina this admission, timing TBD pending MRCP findings/OR availability.
--Continue ABX as per ID
--His son was present, all questions answered.
Assessment / Plan
-
77 yo male with a h/o DM, HTN and UHR remotely who presented with dizziness and difficulty walking about one week ago. Initial neurologic work up has been negative. Blood cultures on admission with growth of ecoli with initial elevation in WBC's
(now WBC's normal). LFT's initially normal but have been steadily rising since presentation, with slight decrease 06/03. Fever 06/01 up to 101.3 but afebrile since. On antibiotics. US 06/02 with layering sludge and wall thickening concerning for acute
cholecystitis.
--Clinically improved. Probable cholangitis on admission with no clinical signs of acute cholecystitis.
Subjective Data
-
Date of Service: June 04, 2023
He denies any pain and he is hungry.
Objective Data
-
Intake and Output
06/03/23 06/04/23 06/05/23
06:59 06:59 06:59
Intake Total 1520 / 1520 920 / 920
Output Total 2600 / 2600
Balance -1080 / -1080 920 / 920
Intake:
Oral fluids 660 / 660 920 / 920
IV fluids (Total) 860 / 860
Output:
Urine, Voided 2600 / 2600
Other:
Number of approximated MODERATE 2
amounts of urine
Vital Signs
Temp Pulse Resp BP Pulse Ox
98.0 F 78 14 127/74 96
06/04/23 10:57 06/04/23 10:57 06/04/23 10:57 06/04/23 10:57 06/04/23 10:57
Lab Results
06/03/23 08:27
06/04/23 07:06
Calcium 9.6 mg/dl (8.4-10.2) 06/04/23 07:06
Total Bilirubin 1.9 mg/dl (0.2-1.3) H D 06/04/23 07:06
AST 484 U/L (17-59) H 06/04/23 07:06
ALT 444 U/L (0-50) H 06/04/23 07:06
Alkaline Phosphatase 387 U/L (38-126) H 06/04/23 07:06
Total Protein 6.9 g/dl (6.3-8.2) 06/04/23 07:06
Albumin 3.6 g/dl (3.5-5.0) 06/04/23 07:06
Physical Exam
-
NAD
Abd: soft and nontender
[2023-06-04 15:00] VITALS: BP 132/73
[2023-06-04] MEDS: ANCEF 10 IV ×2 (15:25→22:30)
[2023-06-04 16:40] LABS: Glucose - Point of Care 258 mg/dl (70-99)
[2023-06-04] MEDS: LOVENOX 40 MG SC (17:35)
[2023-06-04] MEDS: PROTONIX 40 MG PO (17:35)
[2023-06-04 19:27] VITALS: BP 130/72
[2023-06-04 21:29] LABS: Glucose - Point of Care 255 mg/dl (70-99)
[2023-06-04] MEDS: LANTUS 0.119999999999999996 UNITS SC (22:30)
[2023-06-04 22:52] VITALS: BP 126/75
[2023-06-05 03:20] VITALS: BP 124/76
[2023-06-05] MEDS: ANCEF 10 IV (05:57)
[2023-06-05 07:36] VITALS: BP 137/72
[2023-06-05 08:06] LABS: Glucose - Point of Care 266 mg/dl (70-99)
[2023-06-05 09:06] LABS: ALT (SGPT) 506 U/L (0-50); AST (SGOT) 512 U/L (17-59); Albumin 3.7 g/dl (3.5-5.0); Alkaline Phosphatase 492 U/L (38-126); Blood Urea Nitrogen 20 mg/dl (9-20); Calcium 9.7 mg/dl (8.4-10.2); Carbon Dioxide 22 mmol/L (22-30); Chloride 99 mmol/L (98-107); Estimated Creatinine Clearance 72 ml/min; Glucose 282 mg/dl (70-99); Potassium 4.2 mmol/L (3.5-5.1); Sodium 134 mmol/L (135-145); Total Bilirubin 1.2 mg/dl (0.2-1.3); Total Protein 7.2 g/dl (6.3-8.2); eGFR > 60.00
[2023-06-05] MEDS: ASPIR LOW (ENTERIC COATED) 81 MG PO (10:05)
[2023-06-05] MEDS: NOVOLOG FLEXPEN-LOW RESISTANCE 3 UNITS SC ×2 (10:06→17:24)
--- NOTE | 2023-06-05 10:07 | W.PN.HOSP.TC ---
Today's Communication/Plan
-
Adjust insulin
MRCP
IV fluids
Assessment / Plan
Assessment / Plan
Gen-AAOx3, NAD
HEENT-NC, AT, anicteric, clear oral mm
Neck-supple
CV-reg, no M, +S1/S2
Lungs-clear B/L
Abd-soft, NT, ND
Ext-no edema
Musculoskeletal-no cyanosis, clubbing
Skin-warm and dry
Neuro-grossly non-focal
Psych-calm, cooperative
E. coli sepsis due to acute calculus cholecystitis -suspect present on admission. Hemodynamically stable. White blood cell count normalized. No further fevers. Elevated LFTs noted.
Repeat blood cultures negative. Continue antibiotics per ID. Appreciate surgery input, anticipate cholecystectomy tomorrow. Awaiting general surgery decision on timing of cholecystectomy. MRCP today as per nursing.
Gait ataxia -likely due to sepsis, acute illness. No stroke noted on brain MRI. Ataxia improving overall. Continue PT.
NANNETTE -differential diagnosis includes volume depletion versus sepsis.� Continue normal saline IV fluids.�Hold ARB. Stop NSAIDs. NANNETTE resolved.
Hyponatremia - likely hypovolemic.� Sodium stable at 134.
DM2 with hyperglycemia -glucose 282 this a.m.,�hemoglobin A1c 8.9%.�He uses Trulicity, glipizide, metformin at home, all are on hold for now. Not on insulin at home. Will increase Lantus to 15 units at bedtime. Continue low resistance sliding
scale. Give a dose of NPH now. Add mealtime insulin when he eats. Currently n.p.o. for MRCP.
Essential hypertension -stable.
Hyperlipidemia -hold rosuvastatin for elevated LFTs.
Chronic right foot drop
Obesity due to excess calories
Full code
Anticipated Discharge: > 48 hours
Subjective/Interval History
-
Date of Service: June 05, 2023
Patient seen and examined. No complaints.
Objective Data
-
Labs:
Laboratory Results
06/05/23
06:35
Sodium 134 L
Potassium 4.2
Chloride 99
Carbon Dioxide 22
BUN 20
Creatinine 0.9
Glucose 282 H
Calcium 9.7
Total Bilirubin 1.2
AST 512 H*
ALT 506 H*
Alkaline Phosphatase 492 H
Vital Signs:
Vital Signs
Temp Pulse Resp BP Pulse Ox
97.9 F 77 16 137/72 95
06/05/23 07:36 06/05/23 07:36 06/05/23 07:36 06/05/23 07:36 06/05/23 07:36
I&O
06/04/23 06/05/23 06/06/23
06:59 06:59 06:59
Intake Total 920 / 920 240 / 240
Balance 920 / 920 240 / 240
Review of Systems
-
History Source: Patient
All other systems: Reviewed and negative
[2023-06-05 11:07] VITALS: BP 133/75
[2023-06-05] MEDS: NSS 1000 IV ×2 (11:29→22:15)
[2023-06-05 11:31] LABS: Glucose - Point of Care 273 mg/dl (70-99)
--- NOTE | 2023-06-05 12:18 | W.PN.GS2 ---
Today's Communication / Plan
-
MRCP
Assessment / Plan
-
77 yo male with a h/o DM, HTN and UHR remotely who presented with dizziness and difficulty walking about one week ago. Initial neurologic work up has been negative. Blood cultures on admission with growth of ecoli with initial elevation in WBC's
(now WBC's normal). LFT's initially normal but have been steadily rising since presentation, with slight decrease 06/03. Fever 06/01 up to 101.3 but afebrile since. On antibiotics. US 06/02 with layering sludge and wall thickening concerning for acute
cholecystitis.
--For MRCP today
--NPO until MRCP completed
Subjective Data
-
Date of Service: June 05, 2023
Patient states he is very hungry. He has no pain.
Objective Data
-
Intake and Output
06/04/23 06/05/23 06/06/23
06:59 06:59 06:59
Intake Total 920 / 920 240 / 240
Balance 920 / 920 240 / 240
Intake:
Oral fluids 920 / 920 240 / 240
Other:
Number of approximated MODERATE 2 2
amounts of urine
Vital Signs
Temp Pulse Resp BP Pulse Ox
98.3 F 77 16 133/75 93
06/05/23 11:07 06/05/23 11:07 06/05/23 11:07 06/05/23 11:07 06/05/23 11:07
Lab Results
06/03/23 08:27
06/05/23 06:35
Calcium 9.7 mg/dl (8.4-10.2) 06/05/23 06:35
Total Bilirubin 1.2 mg/dl (0.2-1.3) 06/05/23 06:35
AST 512 U/L (17-59) H* 06/05/23 06:35
ALT 506 U/L (0-50) H* 06/05/23 06:35
Alkaline Phosphatase 492 U/L (38-126) H 06/05/23 06:35
Total Protein 7.2 g/dl (6.3-8.2) 06/05/23 06:35
Albumin 3.7 g/dl (3.5-5.0) 06/05/23 06:35
Physical Exam
-
NAD
Abd: soft and nontender
[2023-06-05] MEDS: HUMULIN N KWIKPEN 10 UNITS SC (12:30)
[2023-06-05] MEDS: NOVOLOG FLEXPEN-LOW RESISTANCE 2 UNITS SC (12:32)
--- NOTE | 2023-06-05 13:06 | W.PN.ID1 ---
Date of Service
Date of Service: June 05, 2023
Today's Communication
MRCP with concern for probable perforation, planned for the OR tomorrow
LFTs with R value suggesting cholestatic pattern; no filling defect on MRCP, has not been particularly hypotensive while here
Favor avoiding cephalosporins/penicillins at the moment - switched to ertapenem for now
Assessment / Plan
E. coli bacteremia
Suspected cholecystitis
Leukocytosis
Transaminitis
Elevated bilirubin
HTN
Dyslipidemia
Diabetes mellitus (uncontrolled; GyH4f=6.9)
Recommendations:
MRCP with concern for probable perforation, planned for the OR tomorrow
LFTs with R value suggesting cholestatic pattern; no filling defect on MRCP, has not been particularly hypotensive while here
Favor avoiding cephalosporins/penicillins at the moment - switched to ertapenem for now
Repeat blood cultures in progress
Follow white count and temperature curve.
Chief Complaint
-: Bacteremia
Subjective / Review of Systems
afebrile
bp stable
persistent transaminitis
cr stable
MRI with suspicion of perforation
tolerating current therapies
Vital Signs / Physical Exam
Vital Signs
Vital Signs
Temp Pulse Resp BP Pulse Ox
98.3 F 77 16 133/75 93
06/05/23 11:07 06/05/23 11:07 06/05/23 11:07 06/05/23 11:07 06/05/23 11:07
Physical Exam
Constitutional: No Acute Distress
Cardiovascular: Regular Rate and S1/S2; Negative Murmur or Rub
Pulmonary: Clear and Symmetric; Negative Wheezes or Rales
Gastrointestinal: Soft, Non Tender, Non Distended and Normal Bowel Sounds
Skin: Warm and Dry; Negative Rash or Jaundice
Objective Data
Lab Data
Lab Results
06/03/23 08:27
06/05/23 06:35
Estimated Creat Clear 72 ml/min 06/05/23 06:35
Lactic Acid Cancelled 06/01/23 20:30
Total Bilirubin 1.2 mg/dl (0.2-1.3) 06/05/23 06:35
AST 512 U/L (17-59) H* 06/05/23 06:35
ALT 506 U/L (0-50) H* 06/05/23 06:35
Alkaline Phosphatase 492 U/L (38-126) H 06/05/23 06:35
Most recent labs reviewed.
Micro Results:
06/02/23 18:22 Blood Culture - Preliminary
Blood/Venous No Growth in 48 hours- Final report to follow
06/02/23 18:24 Blood Culture - Preliminary
Blood/Venous No Growth in 48 hours- Final report to follow
06/01/23 16:48 Blood Culture - Preliminary
Blood/Venous Escherichia coli
Gram Stain - Preliminary
06/01/23 16:48 Blood Culture - Preliminary
Blood/Venous Escherichia coli
Gram Stain - Preliminary
Imaging:
06/03/2023 Ultrasound abdomen: Layering echogenic sludge and possible noncalcified layering gallstones are noted. Gallbladder wall thickening and Tunde cholecystic fluid consistent with acute cholecystitis although patient has a negative sonographic
Giraldo sign.
06/01/2023 CT head without contrast: No CT evidence for acute intracranial hemorrhage or extra-axial collection. Moderate diffuse cerebral and cerebellar volume loss is noted.
Care Review
Plan reviewed with: Physician (Dr Caceres - MRI results)
[2023-06-05 15:16] VITALS: BP 114/66
[2023-06-05] MEDS: UNASYN IV (15:55)
[2023-06-05 16:42] LABS: Glucose - Point of Care 275 mg/dl (70-99)
[2023-06-05] MEDS: LOVENOX 40 MG SC (17:24)
[2023-06-05] MEDS: PROTONIX 40 MG PO (17:25)
[2023-06-05 20:23] VITALS: BP 148/81
[2023-06-05 21:50] LABS: Glucose - Point of Care 215 mg/dl (70-99)
[2023-06-05] MEDS: INVANZ 60 MG IV (21:59)
[2023-06-05] MEDS: LANTUS 0.149999999999999994 UNITS SC (21:59)
[2023-06-06] VITALS (15 sets, daily range): BP systolic 0–146; BP diastolic 62–79
[2023-06-06 06:23] LABS: Glucose - Point of Care 216 mg/dl (70-99)
[2023-06-06] MEDS: NOVOLOG FLEXPEN-LOW RESISTANCE 2 UNITS SC ×2 (06:35→11:43)
[2023-06-06 07:47] LABS: Glucose - Point of Care 219 mg/dl (70-99)
[2023-06-06] MEDS: ASPIR LOW (ENTERIC COATED) PO (08:29)
--- NOTE | 2023-06-06 09:26 | W.PN.HOSP.TC ---
Today's Communication/Plan
-
see bold
Assessment / Plan
Assessment / Plan
E. coli bacteremia due to acute calculus cholecystitis with possible gallbladder perforation
-Suspect present on admission. Hemodynamically stable. White blood cell count normalized. No further fevers. Elevated LFTs noted.
-Appreciate ID input, continue Invanz as per ID. Repeat blood cultures negative.
-Appreciate general surgery input, for laparoscopic cholecystectomy today
-Leukocytosis resolved, trend fever and white count
Gait ataxia
-Likely due to sepsis, acute illness. No stroke noted on brain MRI. Ataxia improving overall. Continue PT.
NANNETTE
-Differential diagnosis includes volume depletion versus sepsis.� Continue normal saline IV fluids.�Hold ARB. Stop NSAIDs. NANNETTE resolved.
Hyponatremia
-Likely hypovolemic.� Sodium stable at 134.
[place]rolled DM2 with hyperglycemia
-Blood sugars continue to be high, increase glargine to 18 units at bedtime, start Premeal insulin 4 units AC 3 times daily when his diet is resumed
-He is on glipizide 10 mg daily, metformin 1000 mg twice a day, and Trulicity at home
Essential hypertension
-Blood pressure 132/72 with holding losartan 100 mg Qpm and metoprolol succinate 25 mg every afternoon
Hyperlipidemia
-Hold rosuvastatin for elevated LFTs.
Chronic right foot drop
Obesity due to excess calories
-Affects all aspects of care
DVT prophylaxis�subcu Lovenox
Full code
Physical Exam
General: No acute distress
HEENT: Normocephalic, Atraumatic, EOMI, MMM
Respiratory: Clear to Auscultation bilaterally
Cardiac: Normal S1/S2, Regular Rate and Rhythm
GI: Soft, Nontender, Nondistended, Normal Bowel Sounds
Extremities: No Clubbing, Cyanosis, or Edema
Neuro: Nonfocal/Grossly Intact
Psych: Calm, Cooperative
Derm: No Visible lesions
Anticipated Discharge: 24 - 48 hours
Subjective/Interval History
-
Date of Service: June 06, 2023
Patient denies abdominal pain, no nausea, no vomiting. No fever. No chest pain, no shortness of breath.
Objective Data
-
Labs:
Laboratory Results
06/06/23
08:31
Sodium Pending
Potassium Pending
Chloride Pending
Carbon Dioxide Pending
BUN Pending
Creatinine Pending
Glucose Pending
Calcium Pending
Total Bilirubin Pending
AST Pending
ALT Pending
Alkaline Phosphatase Pending
Vital Signs:
Vital Signs
Temp Pulse Resp BP Pulse Ox
98.8 F 72 18 125/76 94
06/06/23 07:30 06/06/23 07:30 06/06/23 07:30 06/06/23 07:30 06/06/23 07:30
I&O
06/05/23 06/06/23 06/07/23
06:59 06:59 06:59
Intake Total 240 / 240 2059
Balance 240 / 240 2059
[2023-06-06 09:49] LABS: ALT (SGPT) 314 U/L (0-50); AST (SGOT) 147 U/L (17-59); Albumin 3.3 g/dl (3.5-5.0); Alkaline Phosphatase 374 U/L (38-126); Blood Urea Nitrogen 16 mg/dl (9-20); Carbon Dioxide 25 mmol/L (22-30); Chloride 100 mmol/L (98-107); Estimated Creatinine Clearance 81 ml/min; Glucose 249 mg/dl (70-99); Potassium 4.1 mmol/L (3.5-5.1); Sodium 134 mmol/L (135-145); Total Bilirubin 1.1 mg/dl (0.2-1.3); Total Protein 6.6 g/dl (6.3-8.2); eGFR > 60.00
--- NOTE | 2023-06-06 10:20 | W.PN.GS2 ---
Today's Communication / Plan
-
OR today
Assessment / Plan
-
77 yo male with a h/o DM, HTN and UHR remotely who presented with dizziness and difficulty walking about one week ago. Initial neurologic /cardiac work negative. Fever on 06/01 up to 101.3 but afebrile since then. Blood cultures on admission with
growth of ecoli with initial elevation in WBC's (now WBC's normal). LFT's initially normal but began to rise after presentation and now trending down. Repeat blood cx with NGT. Continued on antibiotics. No n/v/abdominal pain. No c/o indigestion or
unplanned weight loss.
US 06/02 with layering sludge and wall thickening concerning for acute cholecystitis. MRCP on 06/04 without choledocholithiasis but with significant inflammatory changes to the gallbladder including possible perforation of the fundus of the
gallbladder. Reviewed imaging with radiology and surgical team, low suspicion for underlying malignant etiology.
--NPO for OR today for lap luz marina
--Continue ABX as per ID
Subjective Data
-
Date of Service: June 06, 2023
Patient seen and examined at bedside. Denies n/v. No abdominal pain. No f/c.
Objective Data
-
Intake and Output
06/05/23 06/06/23 06/07/23
06:59 06:59 06:59
Intake Total 240 / 240 2059
Balance 240 / 240 2059
Intake:
Oral fluids 240 / 240 1000 / 1000
IV fluids (Total) 960 / 960
IV piggybacks 100 / 100
Other:
Number of approximated MODERATE 2 3
amounts of urine
Vital Signs
Temp Pulse Resp BP Pulse Ox
98.8 F 72 18 125/76 94
06/06/23 07:30 06/06/23 07:30 06/06/23 07:30 06/06/23 07:30 06/06/23 07:30
Lab Results
06/03/23 08:27
06/06/23 08:31
Calcium 9.0 mg/dl (8.4-10.2) 06/06/23 08:31
Total Bilirubin 1.1 mg/dl (0.2-1.3) 06/06/23 08:31
AST 147 U/L (17-59) H 06/06/23 08:31
ALT 314 U/L (0-50) H 06/06/23 08:31
Alkaline Phosphatase 374 U/L (38-126) H 06/06/23 08:31
Total Protein 6.6 g/dl (6.3-8.2) 06/06/23 08:31
Albumin 3.3 g/dl (3.5-5.0) L 06/06/23 08:31
Physical Exam
-
NAD
Abd: soft and nontender, non-distended
[2023-06-06 11:06] LABS: Glucose - Point of Care 226 mg/dl (70-99)
[2023-06-06] MEDS: NOVOLOG FLEXPEN SC ×2 (11:31→18:35)
--- NOTE | 2023-06-06 14:32 | CM ---
catalogue and special products manager reviewed patient's chart and patient to return to home when stable.
Plan; Home with spouse when stable.
--- NOTE | 2023-06-06 17:11 | W.SUR.PREOP ---
Pre-Operative Surgical Note
-
I have examined this patient prior to the performance of the scheduled procedure.
The patient's condition is unchanged from the time of the current History and
Physical and the patient is able to undergo the scheduled procedure.
--- NOTE | 2023-06-06 17:11 | W.IMMPOSTOP ---
Surgical Immed Post Op Note
-
Primary Surgeon: Be Navarrete MD
Assisting Surgeon: None
Pre-op Diagnosis: Acute perforated cholecystitis
Post-op Diagnosis: Same
Procedure Performed: Laparoscopic cholecystectomy with cholangiogram
Anesthesia Type: General
Specimen / Cultures:
1. Wound culture for anaerobic, aerobic
2. Gallbladder
Estimated Blood Loss: 7 cc
Complications: None
Operative Findings: Densely inflamed gallbladder with omentum plastered to the anterior gallbladder wall. The cystic triangle was covered with inflamed dense rocklike tissue preventing any sort of reasonable or safe dissection in the space. We
performed a top-down fenestrating cholecystectomy. There was a perforation of the gallbladder fundus into the liver. Wound cultures were obtained from this cavity. There were several small black gallstones that were identified and removed. The
cystic duct ostium was identified and cannulated with a cholangiocatheter and cholangiogram was attempted however there was no significant forward flow. The ostium was suture-ligated with a 2-0 silk suture. 19 Romansh round Rainer drain was
introduced through the right most lateral port and placed around the liver and across our surgical bed.
POST OP PLAN:
Imaging: None
Labs: Routine AM. If bilirubin rising, or drain output is bilious please make n.p.o. and plan for GI consult for possible ERCP.
Diet: Advance to Regular as tolerated
Analgesia: Tylenol 650mg q6 Dheeraj, Kaylah 5mg q6 PRN, Dilaudid 0.5mg q2h PRN
Neuro/vascular checks: q4h
AC/AP: Hold Therapeutic AC, Ok for DVT PPx
Activity: Ad Gianna
Wound/Incisions/Drains: Routine
Abx: Per primary, ID. Recommend at least 4 days
Dispo: RNF, if minimal bilious drain output for 48 hours will likely discharge home with drain for 7 days.
[2023-06-06 17:41] LABS: Glucose - Point of Care 200 mg/dl (70-99)
[2023-06-06] MEDS: NOVOLOG vial 2 UNITS SC (17:54)
[2023-06-06] MEDS: PROTONIX PO (18:36)
[2023-06-06] MEDS: NOVOLOG FLEXPEN-LOW RESISTANCE SC (18:36)
[2023-06-06] MEDS: LOVENOX SC (18:36)
--- NOTE | 2023-06-06 19:15 | PTCARENOTE ---
1845 Pt arrived from PACU via bed. Pt alert and verbalizing, pt denies discomfort. O2 4L via n/c in place. Noted abdomen three lap sites with CAMELIA drain on right side of abdomen. Noted MD orders.
[address] Navarrete over phone for diet order and MD ordered to check CMP level in am. Report given to respiratory care specialist nurse.
[2023-06-06] MEDS: INVANZ 60 MG IV (20:47)
[2023-06-06 22:17] LABS: Glucose - Point of Care 274 mg/dl (70-99)
[2023-06-06] MEDS: LANTUS 0.179999999999999993 UNITS SC (23:46)
[2023-06-07 03:16] VITALS: BP 128/63
[2023-06-07 07:30] VITALS: BP 124/75; BP 138/76; BP 142/77
--- NOTE | 2023-06-07 08:01 | W.PN.HOSP.TC ---
Today's Communication/Plan
-
Discharge tomorrow if cleared by general surgery
Assessment / Plan
Assessment / Plan
E. coli bacteremia due to acute calculus cholecystitis with possible gallbladder perforation
-Suspect present on admission. Hemodynamically stable. White blood cell count normalized. No further fevers. Elevated LFTs noted.
-Appreciate ID input, continue Invanz as per ID. Repeat blood cultures negative.
-Appreciate general surgery input, s/p laparoscopic cholecystectomy 06/05
-Leukocytosis resolved, trend fever and white count
-General surgery plans for tentative discharge tomorrow if no signs of bile leak with drain for 7 days
Gait ataxia
-Likely due to sepsis, acute illness. No stroke noted on brain MRI. Ataxia improving overall. Continue PT.
NANNTETE
-Differential diagnosis includes volume depletion versus sepsis.� Resolved status post IV fluids.
Hyponatremia
-Likely hypovolemic.� Sodium stable at 134.
[place]rolled DM2 with hyperglycemia
-Blood sugars continue to be high, increase glargine to 18 units at bedtime, start Premeal insulin 4 units AC 3 times daily when his diet is resumed
-He is on glipizide 10 mg daily, metformin 1000 mg twice a day, and Trulicity at home
Essential hypertension
-Resume losartan 100 mg Qpm and metoprolol succinate 25 mg every afternoon
Hyperlipidemia
-Hold rosuvastatin for elevated LFTs.
Chronic right foot drop
Obesity due to excess calories
-Affects all aspects of care
DVT prophylaxis�subcu Lovenox
Full code
Physical Exam
General: No acute distress
HEENT: Normocephalic, Atraumatic, EOMI, MMM
Respiratory: Clear to Auscultation bilaterally
Cardiac: Normal S1/S2, Regular Rate and Rhythm
GI: Soft, mild/moderate tenderness in RUQ, mild distension (baseline), incisions c/d/i - no erythema, ecchymosis or drainage, CAMELIA serosang
Extremities: No Clubbing, Cyanosis, or Edema
Neuro: Nonfocal/Grossly Intact
Psych: Calm, Cooperative
Anticipated Discharge: Within 24 hours
Subjective/Interval History
-
Date of Service: June 07, 2023
Patient reports feeling much better. Dizziness and ataxia resolved. Does have abdominal soreness from the surgery. No vomiting, no fever. No chest pain, no shortness of breath.
Objective Data
-
Labs:
Laboratory Results
06/07/23
06:00
WBC Pending
Hgb Pending
Hct Pending
Plt Count Pending
Sodium Pending
Potassium Pending
Chloride Pending
Carbon Dioxide Pending
BUN Pending
Creatinine Pending
Glucose Pending
Calcium Pending
Total Bilirubin Pending
AST Pending
ALT Pending
Alkaline Phosphatase Pending
Vital Signs:
Vital Signs
Temp Pulse Resp BP Pulse Ox
97.8 F 71 14 128/63 96
06/07/23 03:16 06/07/23 03:16 06/07/23 03:16 06/07/23 03:16 06/07/23 03:16
I&O
06/06/23 06/07/23 06/08/23
06:59 06:59 06:59
Intake Total 2059 220 / 220
Output Total 760 / 760
Balance 2059 -540 / -540
[2023-06-07 08:18] LABS: Glucose - Point of Care 211 mg/dl (70-99)
[2023-06-07] MEDS: ASPIR LOW (ENTERIC COATED) 81 MG PO (08:22)
[2023-06-07] MEDS: NOVOLOG FLEXPEN 4 UNITS SC ×3 (08:22→18:03)
[2023-06-07] MEDS: NOVOLOG FLEXPEN-LOW RESISTANCE 2 UNITS SC (08:22)
[2023-06-07] MEDS: LOVENOX SC (08:23)
[2023-06-07 09:00] LABS: Hematocrit 40.1 % (39.0-52.0); Hemoglobin 13.7 g/dL (13.0-18.0); Mean Corp Hgb Conc. 34.2 g/dL (33.0-37.0); Mean Corpuscular Hgb 31.1 pg (27.0-31.0); Mean Corpuscular Volume 91.1 fL (80.0-94.0); Platelet Count 475 10^3/uL (130-400); White Blood Cell Count 14.9 10^3/uL (4.8-10.8)
--- NOTE | 2023-06-07 09:17 | W.PN.GS2 ---
Today's Communication / Plan
-
-- Diabetic diet
-- Labs pending
-- Pain control: Tylenol, Toradol, Tramadol
-- Abx: Ivanz, ID on board
-- Home meds
-- Tentative plan for DC tomorrow if no signs of bile leak with drain for 7 days
Assessment / Plan
-
77 yo male p/w severe acute cholecystitis
US 06/02 with layering sludge and wall thickening concerning for acute cholecystitis. MRCP on 06/04 without choledocholithiasis but with significant inflammatory changes to the gallbladder including possible perforation of the fundus of the
gallbladder. Reviewed imaging with radiology and surgical team, low suspicion for underlying malignant etiology.
POD#1 s/p laparoscopic cholecystectomy
Recovering well. No major postoperative concerns. Clinically no evidence of a bile leak with nonbilious CAMELIA outputs. Labs pending. Recommend continued monitoring in the hospital for another 24 hours for additional IV antibiotics and pain control.
Tentative plan for DC tomorrow with drain for 1 week and antibiotics for 4 days.
-- Diabetic diet
-- Labs pending
-- Pain control: Tylenol, Toradol, Tramadol
-- Abx: Ivanz, ID on board
-- Home meds
-- Lovenox for DVT
-- Tentative plan for DC tomorrow if no signs of bile leak with drain for 7 days
Subjective Data
-
Date of Service: June 07, 2023
Reports feeling improved postoperatively. Prior noted dizziness and generalized unwell feeling have resolved. Endorses RUQ abdominal pain at this time. No fevers. No nausea or vomiting.
Objective Data
-
Intake and Output
06/06/23 06/07/23 06/08/23
06:59 06:59 06:59
Intake Total 2059 220 / 220
Output Total 760 / 760
Balance 2059 -540 / -540
Intake:
Oral fluids 1000 / 1000 220 / 220
IV fluids (Total) 960 / 960
IV piggybacks 100 / 100
Output:
Drain Output (Total) 60 / 60
Right Abdomen Gilbert-Bray 60 / 60
Urine, Voided 700 / 700
Other:
Number of approximated MODERATE 3
amounts of urine
Vital Signs
Temp Pulse Resp BP Pulse Ox
98 F 80 28 142/77 97
06/07/23 07:30 06/07/23 07:30 06/07/23 07:30 06/07/23 07:30 06/07/23 07:30
Lab Results
06/07/23 08:10
Calcium 9.0 mg/dl (8.4-10.2) 06/06/23 08:31
Total Bilirubin 1.1 mg/dl (0.2-1.3) 06/06/23 08:31
AST 147 U/L (17-59) H 06/06/23 08:31
ALT 314 U/L (0-50) H 06/06/23 08:31
Alkaline Phosphatase 374 U/L (38-126) H 06/06/23 08:31
Total Protein 6.6 g/dl (6.3-8.2) 06/06/23 08:31
Albumin 3.3 g/dl (3.5-5.0) L 06/06/23 08:31
Physical Exam
-
Gen: NAD
Abd: soft, mild/moderate tenderness in RUQ, mild distension (baseline), non-peritoneal, incisions c/d/i - no erythema, ecchymosis or drainage, CAMELIA serosang, non-bilious
[2023-06-07 09:18] LABS: ALT (SGPT) 254 U/L (0-50); AST (SGOT) 116 U/L (17-59); Albumin 3.8 g/dl (3.5-5.0); Alkaline Phosphatase 357 U/L (38-126); Blood Urea Nitrogen 14 mg/dl (9-20); Calcium 9.1 mg/dl (8.4-10.2); Carbon Dioxide 24 mmol/L (22-30); Chloride 100 mmol/L (98-107); Estimated Creatinine Clearance 93 ml/min; Glucose 227 mg/dl (70-99); Magnesium 1.6 mg/dl (1.6-2.3); Phosphorus 3.3 mg/dl (2.5-4.5); Potassium 4.5 mmol/L (3.5-5.1); Sodium 134 mmol/L (135-145); Total Bilirubin 1.2 mg/dl (0.2-1.3); Total Protein 7.2 g/dl (6.3-8.2); eGFR > 60.00
[2023-06-07 11:24] VITALS: BP 141/70
[2023-06-07 11:49] LABS: Glucose - Point of Care 325 mg/dl (70-99)
[2023-06-07] MEDS: NOVOLOG FLEXPEN-LOW RESISTANCE 4 UNITS SC (12:07)
[2023-06-07] MEDS: MIRALAX 17 GRAMS PO (12:09)
--- NOTE | 2023-06-07 14:26 | CM ---
Patient seen with spouse. CM offered VN to patient for drain care. Patient and spouse feel comfortable with teaching from nurse at Hospital and declining VN. Patient and spouse report they feel comfortable managing this at home. CM will continue to
follow for discharge planning needs.
Plan; home with spouse, declining VN at this time.
[2023-06-07 15:50] VITALS: BP 141/78; PULSE 82; O2SAT 94
[2023-06-07 15:54] VITALS: BP 139/69
[2023-06-07 16:50] LABS: Glucose - Point of Care 275 mg/dl (70-99)
--- NOTE | 2023-06-07 16:57 | W.PN.ID1 ---
Date of Service
Date of Service: June 07, 2023
Today's Communication
Continue antibiotics.
Assessment / Plan
E. coli bacteremia
Cholecystitis
- S/P cholecystectomy
Leukocytosis
Transaminitis
Elevated bilirubin
HTN
Dyslipidemia
Diabetes mellitus (uncontrolled; FqP7m=9.9)
Recommendations:
Continue ertapenam
Trend white count and temperatures.
Chief Complaint
-: Bacteremia
Subjective / Review of Systems
Review of Systems: No Fever and No Chills
Vital Signs / Physical Exam
Vital Signs
Vital Signs
Temp Pulse Resp BP Pulse Ox
98.8 F 78 32 139/69 94
06/07/23 15:54 06/07/23 15:54 06/07/23 15:54 06/07/23 15:54 06/07/23 15:54
Physical Exam
Constitutional: No Acute Distress, Comfortable and Non-toxic
Eyes: Sclera Anicteric
Cardiovascular: S1/S2; Negative S3/S4
Pulmonary: Non Labored
Gastrointestinal: Soft, Non Distended and Other (RUQ CAMELIA in place with serosanguineous fluid.)
Neurological: Awake and Alert
Psychological: Calm
Objective Data
Lab Data
Lab Results
06/07/23 08:10
06/07/23 08:10
Estimated Creat Clear 93 ml/min 06/07/23 08:10
Lactic Acid Cancelled 06/01/23 20:30
Total Bilirubin 1.2 mg/dl (0.2-1.3) 06/07/23 08:10
AST 116 U/L (17-59) H 06/07/23 08:10
ALT 254 U/L (0-50) H 06/07/23 08:10
Alkaline Phosphatase 357 U/L (38-126) H 06/07/23 08:10
Most recent labs reviewed.
Micro Results:
06/06/23 16:00 Anaerobic Culture - Preliminary
Gallbladder Culture pending. Anaerobic cultures are examined after 3
days incubation. Additional information to follow.
06/06/23 16:00 Wound Culture - Preliminary
Gallbladder Escherichia coli
Gram Stain - Preliminary
06/02/23 18:24 Blood Culture - Preliminary
Blood/Venous No Growth in 4 days- Final report to follow
06/02/23 18:22 Blood Culture - Preliminary
Blood/Venous No Growth in 4 days- Final report to follow
06/01/23 16:48 Blood Culture - Preliminary
Blood/Venous Escherichia coli
Gram Stain - Preliminary
06/01/23 16:48 Blood Culture - Preliminary
Blood/Venous Escherichia coli
Gram Stain - Preliminary
Imaging:
06/03/2023 Ultrasound abdomen: Layering echogenic sludge and possible noncalcified layering gallstones are noted. Gallbladder wall thickening and Tunde cholecystic fluid consistent with acute cholecystitis although patient has a negative sonographic
Giraldo sign.
06/01/2023 CT head without contrast: No CT evidence for acute intracranial hemorrhage or extra-axial collection. Moderate diffuse cerebral and cerebellar volume loss is noted.
[2023-06-07] MEDS: NOVOLOG FLEXPEN-LOW RESISTANCE 3 UNITS SC (18:04)
[2023-06-07] MEDS: PROTONIX 40 MG PO (18:04)
[2023-06-07] MEDS: TOPROL XL 25 MG PO (18:04)
[2023-06-07] MEDS: COZAAR 100 MG PO (18:05)
[2023-06-07] MEDS: GLUCOTROL 10 MG PO (18:12)
[2023-06-07] MEDS: INVANZ 60 MG IV (20:34)
[2023-06-07] MEDS: MIRALAX PO (20:40)
[2023-06-07 21:44] LABS: Glucose - Point of Care 266 mg/dl (70-99)
[2023-06-07] MEDS: LANTUS 0.179999999999999993 UNITS SC (21:51)
[2023-06-07 23:47] VITALS: BP 117/56
--- NOTE | 2023-06-08 03:28 | DOWNTIME ---
There was a [employer] Client Overlay [employer] Downtime on 06/08/2023 from 0100 to 06/08/2023 at 0322. Downtime documentation of patient's care, including medication administrations, has been reconciled in the electronic record per guidelines. Refer to the
patient's paper chart under the miscellaneous tab to see printed paper medication records and downtime forms.
[2023-06-08 07:00] VITALS: BP 131/79
[2023-06-08 07:58] LABS: Hematocrit 40.8 % (39.0-52.0); Hemoglobin 13.8 g/dL (13.0-18.0); Mean Corp Hgb Conc. 33.8 g/dL (33.0-37.0); Mean Corpuscular Hgb 31.2 pg (27.0-31.0); Mean Corpuscular Volume 92.1 fL (80.0-94.0); Mean Platelet Volume 8.7 fL (7.4-10.4); Platelet Count 499 10^3/uL (130-400); Red Blood Cell Count 4.43 10^6/uL (4.70-6.10); Red Cell Dist. Width 13.3 % (11.5-14.5); White Blood Cell Count 12.5 10^3/uL (4.8-10.8)
[2023-06-08 08:17] LABS: Glucose - Point of Care 199 mg/dl (70-99)
--- NOTE | 2023-06-08 08:17 | W.PN.HOSP.TC ---
Today's Communication/Plan
-
Nursing to provide insulin instruction
Prescribed meds confirmed available for pick prior to discharge home today
Plan for discharge later today 5PM
Assessment / Plan
Assessment / Plan
E. coli bacteremia due to acute calculus cholecystitis with possible gallbladder perforation
-Suspect present on admission. Hemodynamically stable. White blood cell count normalized. No further fevers. Elevated LFTs noted.
-Appreciate ID input, continue Invanz as per ID. Repeat blood cultures negative. Converting IV abx to Keflex and Flagyll on Discharge to continue through 06/16/23
-Appreciate general surgery input, s/p laparoscopic cholecystectomy 06/05
-Leukocytosis resolved, trend fever and white count
-General surgery eval appreciated LFTs improving ok for discharge outpt follow up CMP with drain removal in 1 week.
Gait ataxia
-Likely due to sepsis, acute illness. No stroke noted on brain MRI. Ataxia improving overall. Continue PT.
NANNETTE
-Differential diagnosis includes volume depletion versus sepsis.� Resolved status post IV fluids.
Hyponatremia
-Likely hypovolemic.� Sodium stable at 134.
[place]rolled DM2 with hyperglycemia
-Blood sugars continue to be high, increased glargine to 20 units at bedtime, Premeal insulin increased to 7 units AC
-He is on glipizide 10 mg daily, metformin 1000 mg twice a day, and Trulicity at home
-discussed with patient the importance of good glycemic control in order to promote wound healing.
-nurse to provide patient with instruction on how to administer his own insulin
-Confirmed insulin ready for tack picker prior to discharge
Essential hypertension
-cont losartan 100 mg Qpm and metoprolol succinate 25 mg every afternoon
Hyperlipidemia
-Hold rosuvastatin for elevated LFTs.
Chronic right foot drop
Obesity due to excess calories
-Affects all aspects of care
DVT prophylaxis�subcu Lovenox
Full code
Medically stable for discharge home with home services and outpatient follow up recommendations. Discussed with Nurse, patient to receive instructions on how to administer his own insulin and prescribed meds (including Insulin) need to be confirmed
prior to discharge
Total Time Preparing Discharge __50 minutes including examination of the patient, summary of the hospital stay, instructions for continuing care to all relevant caregivers; and preparation of discharge records, prescriptions, and referral
forms if necessary.
Physical Exam
General: No acute distress
HEENT: Normocephalic, Atraumatic, EOMI, MMM
Respiratory: Clear to Auscultation bilaterally
Cardiac: Normal S1/S2, Regular Rate and Rhythm
GI: Soft, mild/moderate tenderness in RUQ, mild distension (baseline), incisions c/d/i - no erythema, ecchymosis or drainage, CAMELIA serosang
Extremities: No Clubbing, Cyanosis, or Edema
Neuro: Nonfocal/Grossly Intact
Psych: Calm, Cooperative
Anticipated Discharge: Today
Subjective/Interval History
-
Date of Service: June 08, 2023
No acute distress resting comfortably in bed. Reports overall feeling well. Denies new acute issues. Eager to go home.
Objective Data
-
Labs:
Laboratory Results
06/08/23
07:28
WBC 12.5 H
Hgb 13.8
Hct 40.8
Plt Count 499 H
Sodium Pending
Potassium Pending
Chloride Pending
Carbon Dioxide Pending
BUN Pending
Creatinine Pending
Glucose Pending
Calcium Pending
Vital Signs:
Vital Signs
Temp Pulse Resp BP Pulse Ox
98.8 F 75 18 117/56 95
06/07/23 23:47 06/07/23 23:47 06/07/23 23:47 06/07/23 23:47 06/07/23 23:47
I&O
06/07/23 06/08/23 06/09/23
06:59 06:59 06:59
Intake Total 220 / 220 760 / 760
Output Total 760 / 760 660 / 660
Balance -540 / -540 100 / 100
[2023-06-08] MEDS: NOVOLOG FLEXPEN 4 UNITS SC ×2 (08:23→12:52)
[2023-06-08] MEDS: NOVOLOG FLEXPEN-LOW RESISTANCE 1 UNITS SC (08:24)
[2023-06-08 08:25] LABS: Blood Urea Nitrogen 17 mg/dl (9-20); Calcium 9.8 mg/dl (8.4-10.2); Carbon Dioxide 30 mmol/L (22-30); Chloride 97 mmol/L (98-107); Estimated Creatinine Clearance 81 ml/min; Glucose 217 mg/dl (70-99); Sodium 137 mmol/L (135-145); eGFR > 60.00
[2023-06-08] MEDS: GLUCOTROL 10 MG PO (08:25)
[2023-06-08] MEDS: VITAMIN C 1500 MG PO (08:25)
[2023-06-08] MEDS: LOW STRENGTH ASPIRIN 81 MG PO (08:25)
[2023-06-08] MEDS: MIRALAX PO (08:26)
--- NOTE | 2023-06-08 08:28 | W.PN.GS2 ---
Today's Communication / Plan
-
Dispo planning pending CMP
Assessment / Plan
-
77 yo male p/w severe acute cholecystitis
US 06/02 with layering sludge and wall thickening concerning for acute cholecystitis. MRCP on 06/04 without choledocholithiasis but with significant inflammatory changes to the gallbladder including possible perforation of the fundus of the
gallbladder. Reviewed imaging with radiology and surgical team, low suspicion for underlying malignant etiology.
POD#2 s/p laparoscopic cholecystectomy
Recovering well. No major postoperative concerns. Clinically no evidence of a bile leak with nonbilious CAMELIA outputs. Labs pending.
-- CAMELIA drain teaching
-- Diabetic diet
-- Labs pending, okay to discharge if LFTs continue downtrending.
-- Abx: Ivanz, ID on board. Will defer to ID for home-going antibiotic plan.
-- Home meds
-- Lovenox for DVT
-- As long as LFTs okay, okay to discharge home today from a general surgery standpoint. We will arrange follow-up with him in 1 week with a repeat CMP and likely drain removal.
Time Spent
Total Time Spent with Patient (in minutes): 20
Subjective Data
-
Date of Service: June 08, 2023
Interval Events:
No acute events overnight. Slept well. Pain Controlled. Denies Nausea/Vomiting, +bowel function. Tolerating diet. Urinary and bowel habits.
Objective Data
-
Intake and Output
06/07/23 06/08/23 06/09/23
06:59 06:59 06:59
Intake Total 220 / 220 760 / 760
Output Total 760 / 760 660 / 660
Balance -540 / -540 100 / 100
Intake:
Oral fluids 220 / 220 760 / 760
Output:
Drain Output (Total) 60 / 60 110 / 110
Right Abdomen Gilbert-Bray 60 / 60 110 / 110
Urine, Voided 700 / 700 550 / 550
Other:
Number of approximated MODERATE 3
amounts of urine
Vital Signs
Temp Pulse Resp BP Pulse Ox
98.8 F 75 18 117/56 95
06/07/23 23:47 06/07/23 23:47 06/07/23 23:47 06/07/23 23:47 06/07/23 23:47
Lab Results
06/08/23 07:28
06/08/23 07:28
Calcium 9.8 mg/dl (8.4-10.2) 06/08/23 07:28
Phosphorus 3.3 mg/dl (2.5-4.5) 06/07/23 08:10
Magnesium 1.6 mg/dl (1.6-2.3) 06/07/23 08:10
Total Bilirubin 1.2 mg/dl (0.2-1.3) 06/07/23 08:10
AST 116 U/L (17-59) H 06/07/23 08:10
ALT 254 U/L (0-50) H 06/07/23 08:10
Alkaline Phosphatase 357 U/L (38-126) H 06/07/23 08:10
Total Protein 7.2 g/dl (6.3-8.2) 06/07/23 08:10
Albumin 3.8 g/dl (3.5-5.0) 06/07/23 08:10
Physical Exam
-
GENERAL/NEURO: Awake, Alert, no distress
CHEST: Unlabored breathing on RA
ABDOMEN: Soft, Non-Tender, Non-Distended CAMELIA with cloudy serosanguineous drainage.
--- NOTE | 2023-06-08 08:33 | OR.RPT ---
Operative Report
Operative Report
Patient Name: Sang Garcia
:1945
Date of Operation: 06/06/2023
Preoperative Diagnosis: Acute perforated cholecystitis
Postoperative Diagnosis: Same
Procedure(s):
Laparoscopic Cholecystectomy with Cholangiogram
Surgeon(s):
Dr. Navarrete
Product Assurance Engineer(s):
ELIOT Walsh
Anesthesia: General
Estimated Blood Loss: [7] cc
Urine Output: None
Drains/Lines/Implants: [None]
Specimens:
1. Gallbladder and contents
2. Wound culture for aerobic and anaerobic
HPI/Surgical Indications:
This is a 77-year-old diabetic male who presents with gait instability/ataxia found to have E. coli bacteremia. Subsequent MRI imaging demonstrated acute calculus cholecystitis with likely perforation into the liver. Interestingly the patient
denied any postprandial abdominal pain. Risks/Benefits/Alternatives were discussed at length, and the patient agreed to proceed with surgery.
Operative Findings: Densely inflamed gallbladder with omentum plastered to the anterior gallbladder wall. The cystic triangle was covered with inflamed dense rocklike tissue preventing any sort of reasonable or safe dissection in the space. We
performed a top-down fenestrating cholecystectomy. There was a perforation of the gallbladder fundus into the liver. Wound cultures were obtained from this cavity. There were several small black gallstones that were identified and removed. The
cystic duct ostium was identified and cannulated with a cholangiocatheter and cholangiogram was attempted however there was no significant forward flow. The ostium was suture-ligated with a 2-0 silk suture. 19 Albanian round Rainer drain was
introduced through the right most lateral port and placed around the liver and across our surgical bed.
Procedure Description:
The patient was brought to the Operating Room and placed in the supine position with one arm tucked. Following uneventful induction of general endotracheal anesthesia, an orogastric tube was placed. The abdomen was prepped and draped in the usual
sterile fashion. A timeout was performed confirming the procedure, consent, and that IV antibiotics were infused and sequential compression devices were confirmed to be on. The abdomen was entered using a left subcostal Veress technique followed by
a right upper quadrant 11 mm Optiview trochar taking care to be lateral enough from his umbilical hernia repair with mesh. Pneumoperitoneum to 15 mmHg pressure was obtained without difficulty and we confirmed that no injury had occurred during our
entry. The patient was positioned in reverse Trendelenberg and rotated with the right side up slightly. Two 5mm trocars were then placed along the right subcostal margin, and a 12 mm trocar in the epigastrium. Upon initial inspection, the
gallbladder could not even be identified as there was omentum and fat plastered over the liver. This was taken down with gentle hook electrocautery at first but we quickly switched to bipolar LigaSure device. Eventually the fundus of the
gallbladder was identified. It was very tense and inflamed. We continued working the omental fat off of the anterior surface of the gallbladder. A 4 x 4 Ray-Tito was placed in the base for dissection. The gallbladder was punctured intentionally
to decompress it so that it could be manipulated. The pus that emanated from the lumen was swabbed for aerobic and anaerobic culture. It was readily apparent that dissecting out the triangle of Calot would be impossible as we could not identify
any of the natural planes in the area so we elected to do a top-down fenestrating cholecystectomy leaving the back wall of the gallbladder in place. The anterior surface of the gallbladder was removed using the LigaSure device. Near the fundus of
the gallbladder posterior perforation into the liver was identified with an abscess cavity that was de-loculated and irrigated out. There was some infected bile which spilled but was quickly suctioned out. There were also a few small black
gallstones which were removed individually. We continued our dissection towards the hilum where we were actually able to identify a single ostium which was likely the cystic duct. The anterior wall of the gallbladder was completely divided off
taking care to leave behind healthy cuff of tissue near the cystic duct opening. A cholangiocatheter was inserted into the ostium and C-arm was brought on to the field and cholangiogram was performed. Unfortunately there was no significant forward
flow to be able to appreciate any biliary anatomy. The catheter was removed. The cystic duct ostium was then suture-ligated with a 2-0 silk suture. The back wall of the gallbladder mucosa was then fulgurated. The gallbladder bed was inspected and
excellent hemostasis was obtained. The gallbladder, stones and 4 x 4 were extracted through the 12 mm trocar site using an endocatch bag. The abdomen was again irrigated and excellent hemostasis was assured. A 19 Albanian round Rainer drain was
introduced through the right most lateral port and placed across our surgical dissection bed. This was secured in place at the skin level with a 2-0 nylon suture. The 12 and 11 mm trocar sites were closed using 0 PDS suture. All trocar sites were
closed at the skin level using 4-0 Monocryl followed by Dermabond. Overall, the patient tolerated the procedure well and was taken to the Recovery Room postoperatively in stable condition.
I was the attending physician and performed the procedure with assistance from the AS400 ADMINISTRATOR above. I was present for all portions of the case
Be Navarrete MD
[2023-06-08 09:58] LABS: ALT (SGPT) 204 U/L (0-50); AST (SGOT) 67 U/L (17-59); Albumin 3.8 g/dl (3.5-5.0); Alkaline Phosphatase 323 U/L (38-126); Direct Bilirubin 0.3 mg/dl (0.0-0.4); Total Bilirubin 1.1 mg/dl (0.2-1.3); Total Protein 7.4 g/dl (6.3-8.2)
--- NOTE | 2023-06-08 10:46 | W.PN.ID1 ---
Date of Service
Date of Service: June 08, 2023
Today's Communication
Continue abx. See below...
Assessment / Plan
E. coli bacteremia
- cleared as of 06/02/23
Cholecystitis
- S/P cholecystectomy 06/06/2023
Leukocytosis
- improving
Transaminitis
Elevated bilirubin
HTN
Dyslipidemia
Diabetes mellitus (uncontrolled; AkI1z=1.9)
Recommendations:
Cultures reviewed. E. coli recovered. Repeat blood cultures negative. Leukocytosis improving.
Transition to cephalexin 500 mg QID + metronidazole 500 mg TID at discharge. Continue antibiotics through 06/16/2023.
����������������������������������������������������������
Chief Complaint
-: Bacteremia and Other (Cholecystitis)
Subjective / Review of Systems
Review of Systems: No Fever, No Chills and No Abdominal Pain
Vital Signs / Physical Exam
Vital Signs
Vital Signs
Temp Pulse Resp BP Pulse Ox
98.5 F 85 18 131/79 94
06/08/23 07:00 06/08/23 07:00 06/08/23 07:00 06/08/23 07:00 06/08/23 07:00
Physical Exam
Constitutional: No Acute Distress, Comfortable and Non-toxic
Eyes: No Conjunctival Hemorrhage and Sclera Anicteric
Pulmonary: Non Labored
Gastrointestinal: Non Distended and Other (CAMELIA in place with serosanguineous fluid.)
Extremities: Negative Edema, Cyanosis or Erythema
Neurological: Awake and Alert
Psychological: Calm
Objective Data
Lab Data
Lab Results
06/08/23 07:28
06/08/23 07:28
Estimated Creat Clear 81 ml/min 06/08/23 07:28
Lactic Acid Cancelled 06/01/23 20:30
Total Bilirubin Cancelled 06/08/23 09:08
AST Cancelled 06/08/23 09:08
ALT Cancelled 06/08/23 09:08
Alkaline Phosphatase Cancelled 06/08/23 09:08
Most recent labs reviewed.
Micro Results:
06/06/23 16:00 Wound Culture - Preliminary
Gallbladder Escherichia coli
Gram Stain - Preliminary
06/02/23 18:24 Blood Culture - Final
Blood/Venous No Growth - Final Report
06/02/23 18:22 Blood Culture - Final
Blood/Venous No Growth - Final Report
06/06/23 16:00 Anaerobic Culture - Preliminary
Gallbladder Culture pending. Anaerobic cultures are examined after 3
days incubation. Additional information to follow.
06/01/23 16:48 Blood Culture - Preliminary
Blood/Venous Escherichia coli
Gram Stain - Preliminary
06/01/23 16:48 Blood Culture - Preliminary
Blood/Venous Escherichia coli
Gram Stain - Preliminary
Wound/abscess/other Cult Preliminary 06/06/23-1600
Few Escherichia coli
1. Escherichia coli
M.I.C. RX
--------- ---
Amoxicillin/Potas. Clavulanate <=8/4 S
Ampicillin <=8 S
Ampicillin/Sulbactam <=8/4 S
Cefazolin <=2 S
Ertapenem <=0.5 S
Ciprofloxacin <=0.25 S
Gentamicin <=4 S
Levofloxacin <=0.5 S
Meropenem <=1 S
Piperacillin/Tazobactam <=16 S
Tobramycin <=4 S
Trimethoprim/Sulfamethoxazole <=2/38 S
Imaging:
06/03/2023 Ultrasound abdomen: Layering echogenic sludge and possible noncalcified layering gallstones are noted. Gallbladder wall thickening and Tunde cholecystic fluid consistent with acute cholecystitis although patient has a negative sonographic
Giraldo sign.
06/01/2023 CT head without contrast: No CT evidence for acute intracranial hemorrhage or extra-axial collection. Moderate diffuse cerebral and cerebellar volume loss is noted.
[2023-06-08 12:00] VITALS: BMI 26.7
[2023-06-08 12:07] LABS: Glucose - Point of Care 240 mg/dl (70-99)
--- NOTE | 2023-06-08 12:38 | CM ---
Addendum entered by Kathleen Martinez 06/08/23 15:22:
Per Hospitalist, patient agreeable to VN services, Maria Luz at [facility] made aware.
Plan; home with [facility] for drain care.
Original Note:
Patient seen bedside. Patient declining VN and reports he and his can manage drain care. IMM reviewed, signed, placed in patients chart. 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 CM will
continue to follow for discharge planning needs.
Plan; home no needs.
[2023-06-08] MEDS: NOVOLOG FLEXPEN-LOW RESISTANCE 2 UNITS SC ×2 (12:53→16:27)
--- NOTE | 2023-06-08 13:41 | W.DCSUMMARY ---
Discharge Summary
Discharge Data
Date of Admission: 06/01/23
Date of Discharge: 06/08/23
-
Pending Results: Yes
Additional Pending Results:
official culture results
Hospital Course
77M here with complaints of unsteadiness when he walks. Symptoms started initially with chest pain on Tuesday after lifting heavy machinery, subsequently developed gait ataxia Tuesday and had persisted since. Also reported loss of appetite and
malaise. Denied any fevers but did have some chills recently. Denied nausea vomiting or cough. No changes in bowel habits. Went to see his primary care doctor and was referred to ED due to concerns infection unclear etiology. Started on empiric
abx, gait ataxia, likely due to sepsis, acute illness. No stroke noted on brain MRI. Ataxia improving overall. Patient was evaluated and found to have E. coli bacteremia due to acute calculus cholecystitis with possible gallbladder perforation.
Present on admission. Hemodynamically stable. White blood cell count normalized. No further fevers. Elevated LFTs noted. ID evaluated and transitioned abx to Invanz. Repeat blood cultures negative. Towards end of hospital course, IV abx were
converted to Keflex and Flagyll on discharge to continue through 06/16/23. General surgery evaluated and performed laparoscopic cholecystectomy 06/05. Outpatient follow up for drain removal was recommended. NANNETTE likely due to volume depletion
versus sepsis,�resolved with IV fluids. Uncontrolled DM2 with hyperglycemia, new to insulin, regimen was titrated up to glargine 20 units at bedtime, Premeal insulin increased to 7 units AC. On glipizide 10 mg daily, metformin 1000 mg twice a day,
and Trulicity at home, discussed with patient the importance of good glycemic control in order to promote wound healing. Nurse to provided patient with instruction on how to administer his own insulin. Medically stable, patient was discharged home
with home services and outpatient follow up recommendations.
Discharge Plan
-
Patient Disposition: Home with Home Care
Discharge Diagnosis/Procedures: Acute perforated cholecystitis status postcholecystectomy, gait ataxia, acute kidney injury, uncontrolled type 2 diabetes with hyperglycemia, essential hypertension, hyponatremia, chronic right foot drop
Condition: Good
Diet: Low Fat, Low Cholesterol and Diabetic, Carb Controlled
Activity: No strenuous activity
Bathing Restrictions: OK to Shower
Blood Work: Please repeat CMP with surgeon in 1 week of discharge.
Other Services: VN, PT and OT
Activity Restrictions/Additional Instructions:
Instructions following Laparoscopic cholecystectomy
Please call [phone] if you have any questions or concerns after your surgery.
Wound Care:
Your incisions are covered with skin glue which will come off on it�s own in 5-10 days.
It is ok to shower the day after your surgery. Do not scrub the incisions, let soap and water wash over them and pat dry.
� Bruising around your incisions is normal.
� Using ice packs will help minimize this swelling.
� No swimming or soaking incisions for 1 week.
� Your stitches will dissolve and do not need to be removed.
Urinary retention:
If you are unable to urinate 6-8 hours after your surgery, please call [phone] to discuss further management.
Activity:
No heavy lifting more than 15 pounds for the next 3 weeks, then you may gradually lift heavier objects as tolerated by discomfort. Otherwise activity as tolerated by your comfort level.
Pain Management:
Use Tylenol, ibuprofen and ice packs to treat your pain.
� You may take 650 milligrams of Tylenol (Max 3 grams per day) every 6 hours, and 600 mg of ibuprofen also every 6 hours. (you can alternate them every 3 hours)
� You may use an ice pack to your incision as needed.
� If you still have pain not controlled by these measures, take your prescription pain medication as prescribed.
Medications:
You may resume your home medications.
Bowel Medications:
Prescription pain medication can make you constipated. If you take this medication, also take colace 100 mg twice daily (this is over the counter). If this is not sufficient, you may take Miralax (polyethylene glycol) to help move your bowels.
Diet:
After your procedure, there are no dietary restrictions. You may notice loose stools for up to 4 weeks after surgery with fatty meals, if this is the case you may have to adjust your diet as needed.
Driving restrictions:
No driving if you are taking prescription pain medication or if you think your normal reaction time and attentiveness has been slowed by your surgery.
Things to Look out for:
Worsening Abdominal pain, redness or drainage from incision
Call Doctor for:
Please call if you notice worsening redness or drainage from incision(s) lasting longer than 5 days after your surgery, any foul-smelling drainage from the incision, pain not controlled by pain medications, persistent nausea and vomiting, or for any
fevers greater than 101.3 F. The number for questions/concerns is [phone]
Follow-up:
Follow-up appointment will be scheduled with your surgeon in 1 week. Please call prior to your appointment if you have any questions or concerns. [phone]
Keflex and Metronidazole have been prescribed for treatment of cholecystitis, to continue through 06/16/23 as per ID recommendations.
Lantus and Novolog have been prescribed for better control of diabetes.
Please take medications as prescribed/recommended and follow up with primary care provider and/or other healthcare provider involved in your care for refills and/or further adjustment to your medication regimen as necessarsy.
Instructions: High Blood Sugar, Adult (DC), Type 2 Diabetes (DC), Dealing with Low Blood Sugar from the Drugs You Take
Referrals:
Nicola Herbert DO [Active] - in two to three weeks
Talha Long DO [Family Provider] - in one week
Talha Elizabeth DO [Active] - in two weeks
Be Navarrete MD [Active] - in one week
Prescriptions:
New
polyethylene glycol 3350 [HealthyLax] 17 gram Powder In Packet
17 g PO DAILY PRN (Reason: Constipation) 30 Days Qty: 30 0RF
insulin aspart U-100 [Novolog FlexPen U-100 Insulin] 100 unit/mL (3 mL) insulin pen
7 unit SC AC Qty: 15 0RF
insulin glargine [Lantus Solostar U-100 Insulin] 100 unit/mL (3 mL) insulin pen
20 unit SC HS Qty: 15 0RF
cephalexin 500 mg capsule
500 mg PO QID Qty: 36 0RF
Rx Instructions:
Continue antibiotics through 06/16/23 then stop
metronidazole 500 mg tablet
500 mg PO TID Qty: 27 0RF
Rx Instructions:
continue antibiotics through 06/16/23 then stop
Continued
metformin 500 MG tablet
1,000 mg PO BID
glipizide 10 mg Tablet Extended Release 24hr
10 mg PO DAILY
aspirin 81 MG tablet,chewable
81 mg PO DAILY
ascorbic acid (vitamin C) [Vitamin C] 500 MG tablet
1,500 mg PO DAILY
rosuvastatin [Crestor] 10 mg Tablet
10 mg PO QPM
Trulicity 1.5 mg/0.5 mL Pen Injector
1.5 mg SC SA
therapeutic multivitamin Tablet
1 tab PO DAILY
naproxen sodium [Aleve] 220 mg Tablet
440 mg PO BIDPRN PRN (Reason: mild pain)
docusate sodium [Colace] 100 mg Capsule
100 mg PO DAILYPRN PRN (Reason: cosntipation)
metoprolol succinate [Toprol XL] 25 mg Tablet Extended Release 24 Hr
25 mg PO QPM
losartan 100 mg Tablet
100 mg PO QPM
hydrocodone-acetaminophen 5-300 mg Tablet
1 tab PO BIDPRN PRN (Reason: moderate pain)
omeprazole 20 mg Tablet,Delayed Release (Dr/Ec)
20 mg PO QPM
Discharge Orders:
Discharge Patient (As Directed); Ordered 06/08/23
Ordered By: Patience Taobr
Discharge Date and Time
Discharge Date/Time: 06/08/23 17:14
Print Language: SINGAPOREAN
[2023-06-08 15:00] VITALS: BP 125/73
--- NOTE | 2023-06-08 15:57 | VNURNOTE ---
Home Health Liaison met with patient at 1500 to discuss [facility] nurse visits, schedule and homebound status. Patient is agreeable and understands that visits at home will be 2-3 x per week to assess and teach medical management and CAMELIA drain care.
[facility] brochure provided with contact information. Patient is aware that [facility] will contact him for start of care in 1-2 days after discharge from .
[facility] referral completed in Care Port.
[2023-06-08] MEDS: PROTONIX 40 MG PO (16:21)
[2023-06-08] MEDS: TOPROL XL 25 MG PO (16:21)
[2023-06-08 16:26] LABS: Glucose - Point of Care 233 mg/dl (70-99)
[2023-06-08] MEDS: NOVOLOG FLEXPEN 7 UNITS SC (16:27)
[2023-06-08] MEDS: LOVENOX SC (16:28)
[2023-06-08] MEDS: COZAAR 100 MG PO (16:39)
== END 2023-06-08 17:14 | disposition home health service (06) | DRG 854 ==
LOC: 4 WEST ACU 18:37
PROVIDERS: Emergency Medicine; Family Medicine; Surgery; ADMITTING PHYSICIAN Hospitalist; ATTENDING PHYSICIAN Internal Medicine; CONSULT PHYSICIAN Internal Medicine Infectious Disease; CONSULT PHYSICIAN Surgery; EMERGENCY PHYSICIAN Emergency Medicine; FAMILY PHYSICIAN Student in an Organized Health Care Education/Training Program
PROC: 0FT44ZZ Resection of Gallbladder, Percutaneous Endoscopic Approach (ICD-10-PCS; 2023-06-06)
PROC: BF502Z0 Other Imaging of Bile Ducts using Fluorescing Agent, Intraoperative (ICD-10-PCS; 2023-06-06)
DX: A41.51 Sepsis due to Escherichia coli [E. coli] (principal); E87.1 Hypo-osmolality and hyponatremia; K80.00 Calculus of gallbladder with acute cholecystitis without obstruction; K82.A2 Perforation of gallbladder in cholecystitis; N17.9 Acute kidney failure, unspecified; G95.29 Other cord compression; K82.A1 Gangrene of gallbladder in cholecystitis; E11.65 Type 2 diabetes mellitus with hyperglycemia; R26.0 Ataxic gait; I10 Essential (primary) hypertension; M21.371 Foot drop, right foot
CPT/HCPCS: 88304; 70450; 70551; 74181; 74300; 76000; 76700; 80053; 81003; 81015; 82248; 82962; 83036; 83605; 83735; 84100; 85025; 85027; 87040; 87070; 87071; 87075; 87149; 87186; 87205; 93005; 96360; 97116; 97162; 97166; 97535; 99285; A4300; J1335

== ENCOUNTER → 2023-06-15 15:49 | Outpatient (REF) | payer MEDICARE, OTHER, SELFPAY ==
[2023-06-15 18:03] LABS: Total Bilirubin 3.5 mg/dl (0.2-1.3)
== END ==
LOC: CLAB 15:49
PROVIDERS: ATTENDING PHYSICIAN Surgery
DX: K81.0 Acute cholecystitis (principal)
CPT/HCPCS: 36415; 82247

== ENCOUNTER 2023-06-21 06:41 | Day surgery (SDC) | payer MEDICARE, OTHER, SELFPAY ==
[2023-06-21 13:44] LABS: Glucose - Point of Care 120 mg/dl (70-99)
[2023-06-21 13:51] VITALS: BMI 26.0
[2023-06-21 13:52] VITALS: BMI 26.0
[2023-06-21 13:54] VITALS: BP 148/77
[2023-06-21 15:15] LABS: Glucose - Point of Care 97 mg/dl (70-99)
[2023-06-21 16:11] VITALS: BP 104/75
[2023-06-21 16:15] VITALS: BP 120/74
[2023-06-21 16:30] VITALS: BP 135/88
[2023-06-21 16:35] VITALS: BP 138/90
[2023-06-21 16:38] LABS: Glucose - Point of Care 144 mg/dl (70-99)
== END 2023-06-21 17:13 | disposition home or self-care (01) ==
LOC: GI 06:41
PROVIDERS: ATTENDING PHYSICIAN Internal Medicine Gastroenterology
DX: K83.9 Disease of biliary tract, unspecified (principal); K83.8 Other specified diseases of biliary tract; K31.7 Polyp of stomach and duodenum
CPT/HCPCS: 43274; 74330; 76000; 82962; C1769; C2625

== ENCOUNTER → 2023-06-24 15:42 | Outpatient (REF) | payer MEDICARE, OTHER, SELFPAY ==
[2023-06-24 16:25] LABS: % Basophils 0.3 % (0-2); % Eosinophils 0.3 % (0-6); % Immature Granulocytes 0.5 % (0-0.5); % Lymphocytes 14.1 % (20.5-51.1); % Monocytes 12.2 % (1.7-9.3); % Neutrophils 72.6 % (42.2-75.2); Absolute Immature Granulocytes 0.1 10^3/uL (0-0.05); Absolute Lymphocytes 1.6 10^3/uL (1.2-3.4); Absolute Monocytes 1.4 10^3/uL (0.1-0.6); Absolute Neutrophils 8.4 10^3/uL (1.4-6.5); Hematocrit 38.5 % (39.0-52.0); Hemoglobin 13.4 g/dL (13.0-18.0); Mean Corp Hgb Conc. 34.8 g/dL (33.0-37.0); Mean Corpuscular Hgb 31.2 pg (27.0-31.0); Mean Corpuscular Volume 89.7 fL (80.0-94.0); Mean Platelet Volume 9.1 fL (7.4-10.4); Nucleated Red Blood Cells % 0 % (-); Platelet Count 330 10^3/uL (130-400); Red Blood Cell Count 4.29 10^6/uL (4.70-6.10); White Blood Cell Count 11.6 10^3/uL (4.8-10.8)
[2023-06-24 16:52] LABS: ALT (SGPT) 24 U/L (0-50); AST (SGOT) 25 U/L (17-59); Albumin 4.1 g/dl (3.5-5.0); Alkaline Phosphatase 99 U/L (38-126); Blood Urea Nitrogen 18 mg/dl (9-20); Calcium 10.6 mg/dl (8.4-10.2); Carbon Dioxide 25 mmol/L (22-30); Chloride 95 mmol/L (98-107); Glucose 168 mg/dl (70-99); Potassium 4.5 mmol/L (3.5-5.1); Sodium 131 mmol/L (135-145); Total Protein 7.6 g/dl (6.3-8.2); eGFR 47.95
== END ==
LOC: REG 15:42
PROVIDERS: ATTENDING PHYSICIAN Surgery
DX: K81.9 Cholecystitis, unspecified (principal)
CPT/HCPCS: 36415; 80053; 85025

== ENCOUNTER 2023-09-06 06:16 | Day surgery (SDC) | payer MEDICARE, OTHER, SELFPAY ==
[2023-09-06] VITALS (10 sets, daily range): BP systolic 127–150; BP diastolic 69–82; BMI 28.4
[2023-09-06 07:16] LABS: Glucose - Point of Care 147 mg/dl (70-99)
[2023-09-06 09:41] LABS: Glucose - Point of Care 137 mg/dl (70-99)
== END 2023-09-06 11:14 | disposition home or self-care (01) ==
LOC: GI 06:16
PROVIDERS: ATTENDING PHYSICIAN Internal Medicine Gastroenterology
DX: K31.7 Polyp of stomach and duodenum (principal); K31.89 Other diseases of stomach and duodenum; K29.50 Unspecified chronic gastritis without bleeding; K83.8 Other specified diseases of biliary tract; Z46.59 Encounter for fitting and adjustment of other gastrointestinal appliance and device; Z96.89 Presence of other specified functional implants
CPT/HCPCS: 43264; 43254; 43239; 43275; 88305; 74330; 76000; 82962; 88342; C1769

== ENCOUNTER → 2024-06-13 10:40 | Outpatient (REF) | payer MEDICARE, OTHER, SELFPAY | LOC: RCS 10:40 | PROVIDERS: ATTENDING PHYSICIAN Student in an Organized Health Care Education/Training Program; FAMILY PHYSICIAN Family Medicine | DX: I77.810 Thoracic aortic ectasia (principal) | CPT/HCPCS: 93306 ==

== ENCOUNTER 2025-02-20 06:25 | Day surgery (SDC) | payer MEDICARE, OTHER, SELFPAY ==
[2025-02-20] VITALS (7 sets, daily range): BP systolic 83–121; BP diastolic 51–87; BMI 27.5
[2025-02-20 07:18] LABS: Glucose - Point of Care 151 mg/dl (70-99)
[2025-02-20 09:41] LABS: Glucose - Point of Care 124 mg/dl (70-99)
== END 2025-02-20 10:00 | disposition home or self-care (01) ==
LOC: SDS 06:25
PROVIDERS: ATTENDING PHYSICIAN Internal Medicine Gastroenterology
DX: Z12.11 Encounter for screening for malignant neoplasm of colon (principal); D12.2 Benign neoplasm of ascending colon; D12.4 Benign neoplasm of descending colon; K63.5 Polyp of colon; K57.30 Diverticulosis of large intestine without perforation or abscess without bleeding; K64.0 First degree hemorrhoids; K31.7 Polyp of stomach and duodenum; Z86.0100 Personal history of colon polyps, unspecified; Z98.890 Other specified postprocedural states
CPT/HCPCS: 45385; 43235; 82962; 88305